=== PATIENT | male | born 1945 | race Caucasian/White ===

== ENCOUNTER 2019-09-04 13:18 | Inpatient (IN) | payer OTHER, SELFPAY ==
--- NOTE | 2019-08-30 10:00 | XR_ITS ---
WS: [id number] PROCEDURE: XR chest 2V* [id number] CLINICAL INFORMATION: PERIPHERAL VASCULAR DISEASE - L FORMORA TO RIGHT FEMORAL BYP COMPARISON: January 23, 2017 FINDINGS: Heart: Normal cardiac silhouette. Lungs: Mild chronic emphysematous changes. No acute pulmonary infiltrates. No focal pneumonia. Bones: Normal visualized bony structures. XR/XR chest 2V* 95750 IMPRESSION: No acute chest findings.
[2019-08-30 10:38] VITALS: BMI 27.4
--- NOTE | 2019-08-30 11:08 | ECG_ITS ---
Measurements Intervals Broad Top Rate: 60 P: 83 OH: 172 QRS: 86 QRSD: 95 T: 88 QT: 407 QTc: 407 SINUS RHYTHM SEPTAL MYOCARDIAL INFARCTION [40+ ms Q WAVE IN V1/V2], OF INDETERMINATE AGE Compared to ECG 01/23/2017 17:38:40 No significant changes Electronically Signed On 08-30-2019 18:37:16 OIL DIPPER by Aleshia Ackerman M.D. [email or web address]
[2019-08-30 11:22] LABS: Add Urine Microscopic? NO
[2019-08-30 11:26] LABS: Basophils # 0.1 10^3/uL (0.0-0.1); Eosinophils # 0.5 10^3/uL (0.0-0.8); Eosinophils % 8.6 %; Hematocrit 47.9 % (42.0-52.0); Hemoglobin 15.9 g/dL (11.7-16.6); Lymphocytes # 1.6 10^3/uL (0.8-4.8); Lymphocytes % 25.9 %; Mean Corpuscular HGB Conc 33.2 g/dL (30.0-36.0); Mean Corpuscular Hemoglobin 30.7 pg (28.0-34.0); Mean Corpuscular Volume 92.5 fL (80-94); Mean Platelet Volume 9.6 fL (7.4-10.4); Monocytes # 0.5 10^3/uL (0.2-0.9); Monocytes % 8.7 %; Neutrophils # 3.3 10^3/uL (1.8-7.7); Neutrophils % 55.1 %; Nucleated Red Blood Cells % 0 %; Platelet Count 256 10^3/cmm (130-400); Red Blood Count 5.18 10^6/uL (4.1-5.3); White Blood Count 6.1 10^3/uL (4.0-10.0)
--- NOTE | 2019-08-30 11:28 | P.ANES_ITS ---
Pre-Anesthetic Assessment Pre-Anesthetic Assessment: Height/Weight: Height 1.57 m Weight 68.039 kg Preop Diagnosis: Peripheral vascular disease Proposed Procedure: Operation Date: 09/04/19 08:10 Proposed Procedures p Femoral-Femoral Artery Bypass left to right(Not Applicable) - Phoenix Donnelly MD Familial anesthetic complications: No trouble iwth anesthesia Social: Social History: Tobacco (0.5 ppd) and No alcohol Exam: Pre-Anes Outpt Exam: alert, oriented x 3, clear to auscultation bilaterally and regular rate & rhythm Airway: Cervical ROM: WNL MP: 4 Dentition: False Pulmonary: Pulmonary: COPD CV/HEM: CV/HEM: Angina (Stable) (Describes sharp stabbing pains (in the muscles of his chest) that lasts a few seconds, then goes away. occurs 1-2x a month for years, no triggers) and HTN Comments: Abdominal aortic aneursym, EKG with septal CT (age indertimate) : : None reported Hepatic: Hepatic: None reported GI: GI: None reported Metabolic: Metabolic: None reported Musc/skel: Musc/skel: Lower Back Pain and OA/DJD Comments: L shoulder pain Neuropsych: Neuropsych: POTTS Anesthetic Plan: ASA status: IV Anesthesia: General Risk of > 500 ml blood loss (7ml/kg in children): Yes, adequate IV access and fluids planned Data Anesthesia CBC & Chem 7: 08/30/19 11:05 Other Labs: Laboratory Results - last 48 hr 08/30/19 11:05 WBC 6.1 RBC 5.18 Hgb 15.9 Hct 47.9 MCV 92.5 MCH 30.7 MCHC 33.2 RDW 12.0 L Plt Count 256 MPV 9.6 Neut % (Auto) 55.1 Lymph % (Auto) 25.9 Lau[place] % (Auto) 8.7 Eos % (Auto) 8.6 Baso % (Auto) 1.0 Neut # (Auto) 3.3 Lymph # (Auto) 1.6 [place] # (Auto) 0.5 Eos # (Auto) 0.5 Baso # (Auto) 0.1 Nucleated RBC % (auto) 0 Nucleated RBCs # 0.0 Cardiac Studies: No Data to Display
[2019-08-30 11:33] LABS: Bilirubin Urine Neg (NEGATIVE); Blood Urine Neg (Negative); Glucose Urine UA Norm (Normal); Ketones Urine Negative (Negative); Leukocyte Esterase Urine Negative (Negative); Nitrate Urine Negative (Negative); Protein Urine Neg (Negative); Specific Gravity, Urine 1.005 (1.005-1.030); Urine Appearance Clear (CLEAR); Urine Color Straw (Yellow); Urobilinogen Urine Norm (Negative)
[2019-08-30 11:36] LABS: INR 0.93 (0.8-1.2)
[2019-08-30 11:55] LABS: Anion Gap 17.3 (5-19); Blood Urea Nitrogen 10 mg/dL (8-23); Calcium 10.2 mg/dL (8.5-10.5); Carbon Dioxide 26 mmol/L (22-29); Chloride 99 mmol/L (98-107); Creatinine Clr Calc Pharmacy 56.6436; Glucose 96 mg/dL (74-106); Osmolality Calculated 282 mOsm/kg (285-295); Potassium 4.3 mmol/L (3.5-5.1); Sodium 138 mmol/L (136-145)
[2019-09-04] VITALS (35 sets, daily range): BP systolic 92–166; BP diastolic 54–94; PULSE 50–71; RESP 10–21; TEMP 36.2–37.2; O2SAT 81–100
--- NOTE | 2019-09-04 06:41 | PM.HP ---
Providers/Chief Complaint Primary Care Provider: Jean Carlos Carroll DO Chief Complaint: femroal bypass History of Present Illness Godwin Solorio is a 73 year old male who is been [facility] for bilateral lower extremity claudication. He subsequently went angiography and intervention by Dr. 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 He has done very well with resolution of his left lower extremity symptoms though, not surprisingly, he still has right lower extremity claudication, though no rest pain or impending tissue loss. Given his age, and comorbidities, after discussion with Dr. Slade, we recommended consideration of left femoral to right femoral artery bypass as a less invasive approach as compared to aorto femoral bypass requiring intra-abdominal access. Rationale for this was carefully discussed with Mr. Solorio, and he was clearly in favor of the less invasive approach. He presents today for planned procedure. Review of Systems Const: Denies: fever, chills, change in appetite or change in weight Eyes: Denies: change in vision Card: Reports: leg pain with exertion; Denies: chest pain or irregular heart rhythm Resp: Denies: productive cough GI: Denies: abdominal pain, nausea or vomiting Psych: Reports: depression Medications/Allergies Home Medications Medication Instructions Recorded Confirmed Last Taken Type acetaminophen [Tylenol] 325 mg PO PRN PRN 08/30/19 08/30/19 Unknown History aspirin 81 mg PO DAILY 08/30/19 08/30/19 08/29/19 History clopidogrel [Plavix] 75 mg PO DAILY 08/30/19 08/30/19 08/09/19 History rosuvastatin 5 mg PO DAILY 08/30/19 09/04/19 09/02/19 History varenicline [Chantix] 0.5 mg PO DAILY 08/30/19 09/04/19 09/02/19 History Allergies Allergy/AdvReac Type Severity Reaction Status Date / Time bee venom protein (honey bee) Allergy ALGY-Anaphy Verified 08/30/19 10:27 laxis morphine Allergy ADR-Nausea Verified 08/30/19 10:27 PFSH Acute PFSH: Statuses (acute, chronic, etc) shown below reflect problem list status as previously entered and may not be historically accurate Medical History (Updated 09/04/19 @ 06:45 by Phoenix Donnelly MD) AAA (abdominal aortic aneurysm) (Acute) COPD (chronic obstructive pulmonary disease) (Acute) Depression (Acute) Hypertension (Acute) Peripheral vascular disease (Acute) Surgical History History of back surgery (Acute) Status post insertion of iliac artery stent (Acute) Physical Exam Const: COMMON NORMALS: no apparent distress, average body habitus and healthy appearing GENERAL APPEARANCE: cooperative, comfortable and well developed HENMT: COMMON NORMALS: normocephalic Lymph: LYMPHATIC: no lymphadenopathy noted Chest: COMMONS NORMALS: inspection of chest normal and palpation of chest normal Resp: COMMON NORMALS: normal respiratory effort EFFORT & INSPECTION: Yes symmetric chest movement AUSCULTATION: clear to auscultation bilaterally Cardio: COMMON NORMALS: regular rate and regular rhythm; negative for peripheral pulses 2+ throughout (Decreased pulses right lower extremity) RATE: regular rate RHYTHM: regular rhythm BRUITS: no carotid bruits PERIPHERAL PULSES: radial pulses present and femoral pulses present positive left GI: INSPECTION: Yes normal to inspection AUSCULTATION: Yes normoactive bowel sounds Extremity: COMMON NORMALS: full ROM Psych: COMMON NORMALS: mental status grossly normal, thought process normal, cooperative and affect normal Data : 08/30/19 11:05 08/30/19 11:05 A&P Assessment and plan (1) Status post insertion of iliac artery stent: 73-year-old gentleman with peripheral vascular disease including right common iliac artery occlusion status post stenting of the left external iliac artery. We plan for left femoral to right femoral artery bypass utilizing Ros[place]-Schuyler graft. This was recommended as a less invasive approach as compared to aorto iliac bypass. Mr. Solorio was clearly enthusiastic about considering the less invasive approach. Details the risk of the procedure were carefully and frankly discussed including potential risk for infection, major bleeding, acute ischemia requiring further revisions or even possible loss of the lower extremity. All questions were answered and proper consents have been reviewed and signed. Status: Acute Code(s): Z95.828 - Presence of other vascular implants and grafts Attestations Medical Necessity Statement*: Right lower extremity claudication with right common iliac artery occlusion Time Spent in Patient Care: Greater than 35 minutes Coding Level of Care Code Acute Sole Leveler for Chg Fwd Diagnoses Status post insertion of iliac artery stent Z95.828
[2019-09-04] MEDS: sodium chloride 0.9% 1,000 ML 30 ML IV (07:39)
[2019-09-04] MEDS: vancomycin 1,000 MG SDV 1000 MG IRRIGATION (08:36)
[2019-09-04] MEDS: heparin, porcine 1,000 unit/mL INJ 10 mL 10000 UNIT IRRIGATION (08:45)
--- NOTE | 2019-09-04 12:43 | P.OP_ITS ---
Operative Report Date of procedure: September 04, 2019 Pre-op Diagnosis: Peripheral vascular disease Post-op diagnosis: same Procedure Done: Left femoral artery to right femoral artery bypass utilizing 8 mm Gibson-Schuyler graft Specimens removed/disposition: Plaque from left common femoral artery Pathology: other Pathology: Plaque from left common femoral artery Surgeon: Phoenix Donnelly Anesthesia: General Estimated blood loss (mL): 100 IV fluids (mL): 400 Complications: None Condition: stable Disposition: PACU Brief History: 73-year-old gentleman with bilateral lower extremity claudication status post angiography and stenting of the left external iliac artery. He has a known right iliac artery occlusion. Options for revascularization of the right lower extremity were discussed and to decrease the amount of invasiveness, he wears for the option of a femoral to femoral artery bypass. Rationale was carefully discussed as well as particular risk including infection, pneumonia, pain, lack of improvement of symptoms, need to remove the graft which might result in acute ischemia to the lower extremities resulting amputation, need for long-term follow-up. He stated understanding, wished for us to proceed. Appropriate consents have been reviewed and signed. Procedure: Patient was taken operating room theater carefully positioned on the OR table where appropriate IVs were confirmed. He subsequently went general endotracheal anesthesia. Right radial arterial line was placed. His entire lower extremities and lower abdomen from the xiphoid process through the feet was sterilely prepped and draped. Handheld Doppler interrogation was performed to confirm the exact locations of the femoral arteries and attempt to decrease incision sites. With this technique, bilateral groin incisions were made carried down to the subcutaneous tissues utilizing cautery and suture as required. This was continued down to the femoral sheath which was opened exposing initially left common femoral artery as well as a superficial profunda arteries. Similar technique was utilized on the right side. Following this, a curved subcutaneous tunneler was placed from the left groin to the right groin and an 8 mm ringed Gibson-Schuyler graft was brought back and through this tunnel into each groin. After approximately 5 minutes, patient was then heparinized initially with 10,000 units. We next isolated the left common profunda and superficial femoral arteries. Vascular control was obtained and the vessel was opened up rather distally up onto the SFA. Encroaching plaque was sharply removed after endarterectomy was performed locally. We then performed end-to-side anastomosis utilizing the ringed Gibson-Schuyler graft with running 5-0 Prolene suture. Areas of extravasation were repaired with 6-0 Prolene. Surgicel and dry gauze was placed in the wound. Next, in a similar fashion the right common superficial and profunda femoral arteries were controlled. This vessel was opened up and actually had more plaque than I appreciated upon p alpation. There was appropriate backbleeding noted. We then cut the Gibson-Schuyler graft in this wound to the appropriate length again performed another end-to-side anastomosis with running 5-0 Prolene suture, utilizing 6-0 Prolene to repair areas of extravasation. Backbleeding was performed followed by reestablishment of flow to the right lower extremity. After approximately 5 minutes heparin was partially reversed with protamine. All wounds were carefully inspected. Hemostasis was confirmed. Wounds were irrigated with antibiotic solution. Sponge and needle count was correct. Each wound was closed in 2 layers of 3-0 Vicryl suture and the skin was reapproximated with 3-0 Monocryl suture in a subcuticular fashion. Maxorb dressing and sterile dressing was applied. He was awakened and extubated, taken to the postoperative care unit in stable condition. He has strong biphasic Doppler pulses in the right foot.
--- NOTE | 2019-09-04 12:58 | SUR.PHASEI ---
1225 PT TO PACU AWAKE FOLLOWS COMMANDS BUT ORIENTED TO SELF ONLY. BILAT GROIN STES D/I DISTAL BILAT FOOT PULSES NOTED BY DR LAWSON LT PALPATED AND MARKED , RT DOPPLED AND MARKED X 2 SITES EACH FOOT. PT ON 3LNC PT CONFUSED TRYING TO GET UP , PT REORIENTED MULTIPLE TIMES, GOOD RESP EFFORT VSS. JACOME TO DD STATLOCK TO RT THIGH.
--- NOTE | 2019-09-04 13:14 | SUR.PHASEI ---
1250 RT ARTERIAL LINE PULLED BY RN PT SONDRA WELL PRESSURE HELD X 10 MINUTES, PRESSURE DRESSING TO SITE. PT MORE ALERT ORIENTED X 2 NOW PT ON3LNC TAKING OCC ICE CHIPS DRESSINGX2 UNCHANGED PULSES RECHECKED AND UNCHANGED
--- NOTE | 2019-09-04 13:52 | SUR.PHASEI ---
1340 PT TO FLOOR PT AWAKE ALERT TALKATIVE WITH STAFF, NOW COMPLAINS OF PAIN AND NAUSEA AFTER MOVING TO FLOOR PT SLID TO BED WITH SLIDEBOARD AND ASSIST OF 3 NURSING STAFF, BILAT GROIN SITES D/I NO HEMATOMA, LT FOOT PULSE PALPATED AND RT FOOT DOPPLED X 2 SITES UNCHANGED. BP 129/77, HR 59,RESP 18, SATS 94% ON RA
--- NOTE | 2019-09-04 14:00 | PC.NURSE ---
Patient received from surgery
[2019-09-04] MEDS: atorvastatin 40 mg Tablet 20 MG PO (14:33)
[2019-09-04] MEDS: lactated ringers 1,000 ML 100 ML IV ×2 (14:34→19:57)
[2019-09-04] MEDS: HYDROcodone-acetaminophen 5-325 mg Tablet 1 TAB PO (14:58)
--- NOTE | 2019-09-04 15:00 | PC.NURSE ---
initial assessment noted 1/2x1/2 inch hematoma on the right groin.
--- NOTE | 2019-09-04 15:29 | PC.NURSE ---
Physician notified of hematoma growth to 1 inch by 1 inch. Ordered to bring patient back to surgery.
--- NOTE | 2019-09-04 15:49 | SUR.PHASEI ---
1530 BILATERAL PEDAL PULSES MARKED AT THIS TIME. DOPPLER USED. LEFT FOOT COOL TO THE TOUCH, RIGHT FOOT WARM TO THE TOUCH. PATIENT BROUGHT TO OPS VIA BED FROM MED SURG
[2019-09-04] MEDS: ketorolac 30 mg/mL INJ IVP (16:05)
--- NOTE | 2019-09-04 16:54 | PM.PN ---
Subjective Subjective: Interval history: Status post left femoral to right femoral artery bypass earlier today We were contacted by the nursing service on the second floor that there was increasing swelling in the right groin. I was in the middle of a another operative procedure, so we had Mr. Solorio transferred down to the holding area said I may examine him immediately following my procedure determine whether he needed to have a reexploration. Exam revealed mild swelling in the region though I do not think this is excessive. Vital signs are stable. Maintains Doppler signal in his right foot. Strong Doppler signal across the femorofemoral graft. Vitals/I&O/Wt Last Vital Signs Temp 98.9 F 09/04/19 15:25 Pulse 56 L 09/04/19 15:25 Resp 17 09/04/19 15:25 BP 131/65 09/04/19 15:25 Pulse Ox 97 09/04/19 15:25 09/04/19 09/04/19 09/04/19 06:59 14:59 22:59 Intake Total 50 / 50 0 / 50 Output Total 550 / 550 Balance -500 / -500 0 / -500 Physical Exam Extremity: NARRATIVE EXTREMITY EXAM: Mild swelling in the right groin region though this is not particularly impressive. Dressings remain dry. Strong biphasic Doppler signal remains in the right foot. Urinary Catheter Management^: Lilly: Cath Placed During This Visit: no Data : 08/30/19 11:05 08/30/19 11:05 A&P Assessment and plan (1) Status post femorofemoral bypass surgery: Status post femorofemoral bypass earlier today. Mild swelling in the right groin is stable. I do not feel that exploration is indicated at this time. To allow for more frequent examinations, we will have been placed in the ICU overnight. Status: Acute Code(s): Z95.828 - Presence of other vascular implants and grafts Attestations Medical Necessity Statement*: Peripheral vascular disease status post femorofemoral bypass Time Spent in Patient Care: 16 - 35 minutes Coding Level of Care Code Acute Coding Quality Analyst for Mariah Bone Diagnoses Status post femorofemoral bypass surgery Z95.828
[2019-09-04] MEDS: calcium carbonate 500 mg Chew Tablet 1000 MG PO (19:56)
[2019-09-04] MEDS: ceFAZolin 1,000 MG in sodium chloride 0.9% (plus) 50 ML 100 MG IV (19:57)
[2019-09-04] MEDS: aspirin 81 mg Chew Tablet PO (19:57)
[2019-09-05] VITALS (12 sets, daily range): BP systolic 90–117; BP diastolic 49–69; PULSE 48–71; RESP 10–18; TEMP 36.6–36.8; O2SAT 92–100
[2019-09-05] MEDS: calcium carbonate 500 mg Chew Tablet 1000 MG PO (00:31)
[2019-09-05 04:03] LABS: Basophils % 0.7 %; Eosinophils # 0.4 10^3/uL (0.0-0.8); Eosinophils % 7.2 %; Hematocrit 37.6 % (42.0-52.0); Hemoglobin 11.8 g/dL (11.7-16.6); Lymphocytes # 1.5 10^3/uL (0.8-4.8); Lymphocytes % 25.6 %; Mean Corpuscular HGB Conc 31.4 g/dL (30.0-36.0); Mean Corpuscular Hemoglobin 30.2 pg (28.0-34.0); Mean Corpuscular Volume 96.2 fL (80-94); Mean Platelet Volume 9.6 fL (7.4-10.4); Monocytes # 0.6 10^3/uL (0.2-0.9); Monocytes % 9.8 %; Neutrophils # 3.3 10^3/uL (1.8-7.7); Neutrophils % 56.4 %; Nucleated Red Blood Cells % 0 %; Platelet Count 178 10^3/cmm (130-400); Red Blood Count 3.91 10^6/uL (4.1-5.3); Red Cell Distribution Width 12.2 % (12.1-15.1); White Blood Count 5.8 10^3/uL (4.0-10.0)
[2019-09-05] MEDS: lactated ringers 1,000 ML 100 ML IV (04:05)
[2019-09-05] MEDS: ceFAZolin 1,000 MG in sodium chloride 0.9% (plus) 50 ML 100 MG IV (04:05)
[2019-09-05 04:24] LABS: Anion Gap 14.4 (5-19); Blood Urea Nitrogen 10 mg/dL (8-23); Calcium 9.3 mg/dL (8.5-10.5); Carbon Dioxide 23 mmol/L (22-29); Chloride 105 mmol/L (98-107); Glucose 102 mg/dL (74-106); Osmolality Calculated 282 mOsm/kg (285-295); Potassium 4.4 mmol/L (3.5-5.1); Sodium 138 mmol/L (136-145)
--- NOTE | 2019-09-05 05:39 | PM.PN ---
Subjective Subjective: Interval history: Patient has no complaints on rounds this morning. He is quite conversive. Vitals/I&O/Wt Last Vital Signs Temp 98.3 F 09/05/19 00:00 Pulse 50 L 09/05/19 04:00 Resp 11 L 09/05/19 04:00 BP 104/51 09/05/19 04:00 Pulse Ox 95 09/05/19 04:00 09/04/19 09/04/19 09/05/19 14:59 22:59 06:59 Intake Total 50 / 50 370 / 420 1418.333 / 1838.333 Output Total 550 / 550 1000 / 1550 Balance -500 / -500 370 / -130 418.333 / 288.333 Physical Exam Extremity: OTHER: Groin incisions are clean and dry with surgical dressings in place without strikethrough. Minimal swelling noted. He has a lightly palpable dorsalis pedis pulse this morning on the right side which I could not feel yesterday evening. He has biphasic signals in the DP and PT positions in the right foot by Doppler. Urinary Catheter Management^: Lilly: Cath Placed During This Visit: no Data : 09/05/19 03:45 09/05/19 03:45 A&P Assessment and plan (1) Status post femorofemoral bypass surgery: POD #1 status post left femoral to right femoral bypass. Good progress. We will discontinue Lilly catheter, transfer to the castelan, and assess for discharge later this evening or tomorrow. Status: Acute Code(s): Z95.828 - Presence of other vascular implants and grafts Attestations Medical Necessity Statement*: Status post femorofemoral bypass for symptomatic claudication of the right lower extremity with known right common iliac artery occlusion Time Spent in Patient Care: 16 - 35 minutes Coding Level of Care Code Acute Raw Mill Operator for Mariah Bone Diagnoses Status post femorofemoral bypass surgery Z95.828
[2019-09-05] MEDS: enoxaparin 40 mg/0.4 mL Syringe SUBCUT (06:10)
[2019-09-05] MEDS: aspirin 81 mg EC Tablet PO (09:17)
[2019-09-05] MEDS: pantoprazole DR 40 mg Tablet PO (09:17)
[2019-09-05] MEDS: atorvastatin 40 mg Tablet 20 MG PO (09:17)
[2019-09-05] MEDS: HYDROcodone-acetaminophen 5-325 mg Tablet 1 TAB PO (11:21)
--- NOTE | 2019-09-05 13:10 | PC.CHAP ---
Pastoral Care Encounter/Spiritual Assessment Type of Contact [] Declined heat treating bluer visit [] Patient/Family/Request visit [] Outpatient visit [] Follow-up visit [] Physician referral [] Code/Alert [x] Routine visit [] Staff referral [] Actively dying [] Patient sleeping [] Family support [] [] Out of room [] Palliative care [] [] Receiving care in room [] Pre-surgical visit [] Trauma [] Long length of stay [x] ICU visit [] Other: Relational/Emotional Strength [x] Patient feels connected with others/family/visitors/staff [] Distress [] Loneliness/isolation [] Abandonment Spirituality of Patient [x] Person of Elizabeth [] Attends [employer] of their Elizabeth [x] Believes in Prayer [] Reads Bible or Judaism materials [] There are Spiritual issues to be addressed Aviation Consultant Interventions [x] Prayer [x] Active listening [x] Non-anxious presence [x] Spiritual/emotional support [] Crisis/trauma care [] Spiritual counseling [] Bereavement support [] Provided bereavement packet [] Provided Bible/devotional materials [] Provided toy/stuffed animal, coloring book to patient or family member [] Provided Communion [] Anointing/[place]on [] Salvation [] Completed spiritual assessment [] Other: Impact on Illness or Injury [] Angry [] Fearful [] Anxious [] Often cries [] Exhaustion [] Unable to work [] Unable to attend muslim [] Unable to walk/stand [] Unable to read [] Unable to drive [] Unable to eat/drink [] Unable to sleep [] Unable to be with family [] Patient intubated [] Other: Summary The heat treating bluer visited the patient. The patient enjoyed the visit and the the heat treating bluer prayed for him. The patient asked the heat treating bluer tovisit a friend of his on second floor. Time spent with patient 15 min.
--- NOTE | 2019-09-05 17:49 | P.DS_ITS ---
Discharge Providers Date of Admission: 09/04/19 13:18 Date of Discharge: Date of Discharge: September 05, 2019 Attending Provider at Admission: Phoenix Donnelly MD Attending Provider at Discharge: Phoenix Donnelly MD Primary Care Provider: Jean Carlos Carroll DO Diagnoses at Discharge Discharge Diagnosis (1) Status post femorofemoral bypass surgery: Status: Acute Reason for Visit Reason for Visit: Reason For Visit: femroal bypass Hospital Course Hospital Course: Mr. Solorio was electively admitted yesterday on September 04 for planned left femoral to right femoral artery bypass due to right common iliac artery occlusion. He had previously undergone stenting of his left external iliac artery by Dr. Slade. Following his surgery, he convalesced in the ICU. He did very well. Stable vital signs. Pain under good control. Incision is clean and dry. He has a 2+ right posterior tibial pulse and a light right popliteal pulse prior to discharge. He will be discharged home today in stable condition. Physical Exam Extremity: NARRATIVE EXTREMITY EXAM: Bilateral groin incisions are clean and dry. Surgical dressings were removed. Incisions were painted with Betadine, covered with Maxorb, and adhesive dressing. 2+ palpable right posterior tibial pulse. Lightly palpable right dorsalis pedis pulse. Urinary Catheter Management^: Lilly: Cath Placed During This Visit: yes Urethral Indwelling: No Reason for Continuing Indwelling Catheter: Accurate Measurement of Urinary Output in Critically Ill Patients Urinary Catheter Date of Insertion: 09/04/19 Urinary Catheter Time of Insertion: 09:00 Discharge Data Data Completed and Pending: Completed Studies During Hospitalization Category Date Time Status XR chest 2V* 7104 6 Routine Exams 08/30/19 10:00 Completed Pending at discharge Category Date Time Status CTS [Type and Scr een - Cardiac] [facility] 08/30/19 11:05 Results Complete Blood Co unt w/Auto AM LABS Lab 09/06/19 04:00 Ordered Complete Blood Co unt w/Auto AM LABS Lab 09/07/19 04:00 Ordered Leukocyte Reduced RBC Routine Lab 08/30/19 11:05 Results Retype for XM [facility] ana rosa [facility] 08/30/19 11:05 Results Pathology: Surgic al [PTH] Routine Pth 09/04/19 11:37 Received Labs from last 24 hours 09/05/19 09/05/19 03:45 03:45 WBC 5.8 RBC 3.91 L Hgb 11.8 Hct 37.6 L MCV 96.2 H MCH 30.2 MCHC 31.4 RDW 12.2 Plt Count 178 MPV 9.6 Neut % (Auto) 56.4 Lymph % (Auto) 25.6 [place] % (Auto) 9.8 Eos % (Auto) 7.2 Baso % (Auto) 0.7 Neut # (Auto) 3.3 Lymph # (Auto) 1.5 [place] # (Auto) 0.6 Eos # (Auto) 0.4 Baso # (Auto) 0.0 Nucleated RBC % (a uto) 0 Nucleated RBCs # 0.0 Sodium 138 Potassium 4.4 Chloride 105 Carbon Dioxide 23 Anion Gap 14.4 BUN 10 Creatinine 0.9 Glucose 102 Calculated Osmolal ity 282 L Calcium 9.3 Vitals: Last Vital Signs Temp 98.0 F 09/05/19 14:00 Pulse 62 09/05/19 16:00 Resp 15 09/05/19 16:00 BP 117/62 09/05/19 16:00 Pulse Ox 96 09/05/19 16:00 Discharge Plan Discharge Patient Disposition: Home, Self-Care Condition: Stable Prescriptions: New hydrocodone-acetaminophen 5-325 mg Tablet 1 tab PO Q6H PRN (Reason: Moderate To Severe Pain) Qty: 12 RF: 0 clopidogrel 75 mg tablet 75 mg PO DAILY Qty: 30 RF: 0 Continued Tylenol 325 mg Tablet 325 mg PO PRN PRN (Reason: Pain) RF: 0 aspirin 81 mg Tablet,Delayed Release (Dr/Ec) 81 mg PO DAILY RF: 0 rosuvastatin 5 mg Tablet 5 mg PO DAILY RF: 0 Chantix 0.5 mg Tablet 0.5 mg PO DAILY RF: 0 Discontinued Plavix 75 mg Tablet 75 mg PO DAILY RF: 0 Discharge Orders: Discharge Order (Routine); Ordered 09/05/19 Ordered By: Phoenix Donnelly Referrals: Phoenix Donnelly MD [Physician] - 1 week Discharge Diet: Usual diet Discharge Activity: Limit activity as instructed Activity Restrictions/Additional Instructions: May remove bandage in 2 days May begin daily showers in 2 days No swimming or tub baths x 2 weeks No ointments on incision Report drainage, redness, heat, increased pain, or swelling to clinic No heavy lifting or straining x2 weeks Following shower, after drying thoroughly, keep gauze over incisions beneath underwear. Keep legs elevated as much as possible. Discharge Attestations Time Spent in Discharge Care*: less than 30 min Specific Discharge Activities: Specific discharge activities: educating patient, educating and/or supporting family/caregiver and evaluating patient/reviewing data Status at Discharge: Cognitive status at discharge: cognitively intact , Behavioral status at discharge: cooperative , Overall status at discharge: patient is back to baseline Quality Metrics Clinical Quality Measures During this hospital stay, did patient experience: None Coding Level of Care Code Acute Group Fitness Instructor for Mariah Fwmackenzie Diagnoses Status post femorofemoral bypass surgery Z95.828
[2019-09-05] MEDS: clopidogrel 75 mg Tablet PO (17:50)
== END 2019-09-05 18:16 | disposition home or self-care (01) | DRG 254 ==
LOC: MEDSURG 13:19 → ICU 15:46
PROVIDERS: Admitting Provider Thoracic Surgery (Cardiothoracic Vascular Surgery); Family Provider Emergency Medicine Emergency Medical Services; PCP Emergency Medicine Emergency Medical Services; Visit Provider Thoracic Surgery (Cardiothoracic Vascular Surgery)
PROC: 041L0JH Bypass Left Femoral Artery to Right Femoral Artery with Synthetic Substitute, Open Approach (ICD-10-PCS; principal; 2019-09-04 07:50)
DX: I73.9 Peripheral vascular disease, unspecified (principal); Z88.5 Allergy status to narcotic agent; Z79.02 Long term (current) use of antithrombotics/antiplatelets; Z79.82 Long term (current) use of aspirin; Z79.899 Other long term (current) drug therapy; J44.9 Chronic obstructive pulmonary disease, unspecified; I10 Essential (primary) hypertension; F17.200 Nicotine dependence, unspecified, uncomplicated
CPT/HCPCS: 12345; 36415; 51702; 71046; 80048; 81003; 85025; 85610; 86850; 86900; 88304; 93005; 96365; 96366; 96372; J0131; J0690; J1644; J1650; J1885; J2405; J2704; J2720; J3010; J3370; J3490; J7030

== ENCOUNTER 2020-09-27 07:03 | Outpatient (CLI) | payer OTHER, SELFPAY ==
[2020-09-27 07:06] VITALS: BMI 26.2
--- NOTE | 2020-09-27 07:07 | NMCV_ITS ---
[facility] perf SPECT r/s* [id number] Godwin Solorio Age: 74 Gender: M : 1945 Exam Date: 09/27/2020 08:09 Ordering Phys: Seda Fonseca MD ([email or web address]) Technologist: CHANTAL Bobo Exam Location: [facility] Indications: DYSPNEA STRESS TEST Please [facility] IMAGE PROTOCOL Rest/Stress 1 Lexiscan Day Radiopharmaceutical Dose (mCi) Administration Site Administered by Rest: Tc-99m 11.0 IV CHANTAL Kim Sestamibi Stress:Tc-99m 32.8 IV CHANTAL Kim Sestamibi Rest: 27-Sep-2020 60 Discovery 630 Stress: 27-Sep-2020 30 Discovery 630 0.4mg Lexiscan. Images obtained in supine and prone position. SPECT RESULTS Technical Quality: Excellent Raw Data Analysis: Normal Image Corrections: No attenuation or motion correction applied Summed Stress Score: 15 Summed Rest Score: 7 Summed Difference Score: 8 PERFUSION FINDINGS Medium sized perfusion abnormality of mild to moderate severity of mid to apical anteroseptal, apical inferior and apical boyd with reversibility noted in mid to apical anterior, mid to apical anteroseptal, mid inferoseptal and apical boyd on stress images. FUNCTIONAL RESULTS (calculated via Gated SPECT) Stress Image LV EF (%): 69 Stress EDV (mL):71 TID: 0.98 Stress ESV (mL):22 FUNCTIONAL FINDINGS: The left ventricle is normal in size. Transient Ischemia Dilatation of 0.98. The left ventricular ejection fraction is normal with a value of 69%. There is normal left ventricular wall thickening. Normal end-diastolic and end-systolic volumes. IMPRESSIONS 1. Medium sized perfusion abnormality of moderate severity of mid to apical anteroseptal, apical inferior and apical boyd with reversibility noted in mid to apical anterior, mid to apical anteroseptal, mid inferoseptal and apical boyd. 2. This is suggestive of myocardial infarction in left anterior descending artery territory with moderate kole-infarct ischemia. 3. Overall left ventricular systolic function is normal without regional wall motion abnormalities. 4. The left ventricular ejection fraction is normal with a value of 69%. 5. No prior similar studies to compare. Seda Fonseca MD (Electronically Signed) Final Date: 30 September 2020 17:34 S
--- NOTE | 2020-09-27 07:07 | ECG_ITS ---
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 Interpretive Statements NAME OF STUDY: LEXISCAN SESTAMIBI STRESS TEST INDICATION: Dyspnea PROCEDURE: At the baseline, the blood pressure was 110/79 mmHg with a heart rate of 71 bpm. The electrocardiogram showed normal sinus rhythm, normal axis with possible old anteroseptal infarct. The Lexiscan was infused over a period of 20 seconds. A total of 0.4 milligrams of Lexiscan was infused. The stress phase was continued for a total of 5 minutes. Heart rate at the end of the stress phase was 82 bpm with a blood pressure 118/70 mmHg. The EKG at the peak infusion revealed sinus rhythm with no significant ST-T wave changes. Sestamibi was injected 20 seconds after the Lexiscan infusion. Blood pressure at the end of the recovery phase was 121/71 mmHg with a heart rate of 79 beats per minute. CONCLUSION: 1. No significant EKG changes with the LexiScan infusion. 2. No LexiScan induced chest pain or cardiac arrhythmia. 3. Normal blood pressure and heart rate response. 4. Sestamibi/sestamibi perfusion scan pending; see separate report. Electronically Signed On 09-30-2020 17:26:29 [place] [facility] by Seda Fonseca M.D. [id number]
--- NOTE | 2020-09-27 09:43 | PC.NURSE ---
pt not able to complete exercise mibi, verbal order to change to rigoiscan per dr laws.
[2020-09-27] MEDS: regadenoson 0.4 Mg/5 ml Syringe IVP (09:48)
[2020-09-27 09:54] VITALS: BP 110/79; PULSE 71
== END 2020-09-27 07:04 | disposition home or self-care (01) ==
LOC: CDL 07:04
PROVIDERS: PCP Family Medicine; Visit Provider Internal Medicine Cardiovascular Disease
DX: R06.09 Other forms of dyspnea (principal); I25.89 Other forms of chronic ischemic heart disease
CPT/HCPCS: 78452; 93017; A9500; J2785

== ENCOUNTER → 2020-10-24 09:28 | Outpatient (BNVA) | payer OTHER, SELFPAY | PROVIDERS: PCP Family Medicine; Visit Provider Internal Medicine Cardiovascular Disease | DX: Z01.818 Encounter for other preprocedural examination (principal); Z20.822 Contact with and (suspected) exposure to COVID-19 | CPT/HCPCS: 87635 ==

== ENCOUNTER 2020-10-30 12:38 | Observation (INO) | payer OTHER, SELFPAY ==
[2020-10-24 08:42] LABS: Basophils # 0.1 10^3/uL (0.0-0.1); Eosinophils # 0.7 10^3/uL (0.0-0.8); Eosinophils % 8.1 %; Hematocrit 48.8 % (42.0-52.0); Hemoglobin 16.3 g/dL (11.7-16.6); Lymphocytes # 1.8 10^3/uL (0.8-4.8); Lymphocytes % 22.4 %; Mean Corpuscular HGB Conc 33.4 g/dL (30.0-36.0); Mean Corpuscular Hemoglobin 31.7 pg (28.0-34.0); Mean Corpuscular Volume 94.9 fL (80-94); Mean Platelet Volume 9.1 fL (7.4-10.4); Monocytes # 0.6 10^3/uL (0.2-0.9); Monocytes % 7.5 %; Neutrophils % 60.2 %; Nucleated Red Blood Cells % 0 %; Platelet Count 294 10^3/cmm (130-400); Red Blood Count 5.14 10^6/uL (4.1-5.3); Red Cell Distribution Width 12.4 % (12.1-15.1)
[2020-10-24 08:53] LABS: INR 0.92 (0.83-1.21); Prothrombin Time (Patient) 12.6 Seconds (12.0-15.1)
[2020-10-24 09:02] LABS: Anion Gap 12.7 (5-19); Blood Urea Nitrogen 14 mg/dL (8-23); Calcium 9.2 mg/dL (8.5-10.5); Carbon Dioxide 29 mmol/L (22-29); Chloride 99 mmol/L (98-107); Glucose 96 mg/dL (65-115); Osmolality Calculated 282 mOsm/kg (285-295); Potassium 4.7 mmol/L (3.5-5.1); Sodium 136 mmol/L (136-145)
[2020-10-30] VITALS (49 sets, daily range): BP systolic 93–178; BP diastolic 53–92; PULSE 45–85; RESP 14–24; TEMP 36.7–36.8; O2SAT 92–98; BMI 25.7
--- NOTE | 2020-10-30 06:00 | XACV_ITS ---
Ht: 157 cm Wt: 64 kg BSA: 1.69 m2 Gender: Male : 1945 Any Known Allergies: Other Exam Priority: Routine Procedure(s): Procedure Description: Diagnostic procedure Procedure Description: PCI procedure Procedure Description: Drug Eluting Coronary Stent Procedure Description: PTCA Procedure Description: Miscellaneous Procedure Description: ACT Procedure Description: Coronary Angiography Diagnostic Cath Status: Elective Diagnostic Findings * Indication: Worsening shortness of breath/abnormal stress test. * CX has mild luminal irregularities. In distal vessel, there is 30 to 40% stenosis.. * Mid left circumflex artery is a ENVIRONMENTAL CONFLICT MANAGER. Mid Left Anterior Descending Coronary Artery: Severe 100% stenosis, PEYTON: 0 flow. Distal vessel receives collaterals from LCx and RCA. * RCA is proximally * chronic totally occluded vessel. It gives some collaterals to LAD. pRCA: Severe 100% stenosis, PEYTON: 0 flow. * LM has 0% stenosis. * 1st Diagonal Coronary Artery: Moderate 50% stenosis, PEYTON: 3 flow. * Coronary angiography shows right dominance. PCI Status: Elective PCI Indication: Other Interventional Findings * Procedure detail: We engaged left main artery using XB 3.5 guide catheter. IV heparin was used to maintain an ACT above 250 seconds. We initially attempted to cross the LAD stenosis with run through guidewire but were not able to do it. We then used microcatheter for support and were able to subtotally/totally occluded segment with a fielder XT guide wire. Once we were across the occluded segment, we advanved the microcatheterto distal LAD and switched the Fielder XT guidewire to Runthrough wire. We predilated the stenosis with 2.25 x 15 mm semicompliant balloon. This was followed by placement of 2.5x26mm resolute Chang drug-eluting stent. At this time he noted just distal to the stent,there was some haziness. We placed 2.25x18 mm resolute [place] stent overlapping with the prior LAD stent. Post At this time final angiogram was performed that showed excellent stent expansion, no residual stenosis and PEYTON-3 flow. Guidewire and guide catheter were removed. Hemostasis was obtained with TR band. 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 * Mid Left Anterior Descending Coronary Artery: 100% stenosis treated with AB MINI TREK 1.50X12 RX BALLOON, AB TREK 2.25X15 RX BALLOON, MDT R CHANG 2.5X26 EFFIE, and MDT R CHANG 2.25X18 EFFIE. 0% residual stenosis, PEYTON: 3 flow. Conclusions 1. There is severe coronary artery disease with ENVIRONMENTAL CONFLICT MANAGER of LAD and RCA. 2. Successful revascularization of the mid LAD subtotal/totally occluded segment. Mid Left Anterior Descending Coronary Artery was treated with two Balloon and two Drug Eluting Stent. Recommendations * Transfer to [facility]SU. * Aspirin and Plavix for atleast 1 year. * High intensity statin therapy. * Outpatient follow up with Cardiology. Interventional RX Recommendation: PCI w/o planned CABG Diagnostic RX Recommendation: PCI w/o planned CABG Anticoagulation: Heparin Pressures Phase:Rest AO : 107 / 69 ( 86 ) @ 2:54:00 AM 109 / 61 ( 80 ) @ 2:58:00 AM 108 / 69 ( 87 ) @ 3:18:00 AM 123 / 61 ( 84 ) @ 3:26:00 AM 129 / 62 ( 85 ) @ 3:33:00 AM 95 / 49 ( 66 ) @ 3:35:00 AM 117 / 60 ( 82 ) @ 3:37:00 AM 114 / 59 ( 79 ) @ 3:49:00 AM 115 / 60 ( 80 ) @ 4:00:00 AM Clinical Evaluation EBL: 5mL-10mL Procedural Details Procedure Consent Obtained. Pre-Procedure Time Out. Identified patient by full name and date of as verbalized by the patient/guarantor. Does the consent match the physician's order: Yes. Accurate & Complete Informed Consent: Yes. Inpatient/Outpatient History & Physical on Chart: Yes. If H&P is completed, is and addenduem needed: No; If yes, is the addendum complete: N/A. Visualize and Verify Site with Patient/Guarantor: N/A. Relevant Radiology Images available: N/A. Pre-op teaching completed and patient verbalized understanding. The risks, benefits, and alternatives of sedation and/or procedure were discussed by physician. The patient agrees to continue. Procedure started. Physician arrived. [facility] Clinical Fraility Score: 3: Managing Well. 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 Chest Pain Symptom Assessment: Typical Angina Symptoms. Cardiovascular Instability: No. Correct patient, site and procedure confirmed by cath team. PERRLA. 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 Lungs clear x 5 lobes. IV Site on Arrival: 20 gauge in the right anticubital. IV Fluids: 0.9% NaCl at KVO. 0 mL infused prior to veterinarian laboratory animal care. Pre Procedural Pulses: bilateral dorsalis pedis was Doppled. Pre Procedural Pulses: bilateral posterior tibial was Doppled. Pre Procedural Pulses: right radial was 3+. Pre Procedural Pulses: left radial was 1+. Oxygen started at 2liters/min via nasal canula. bilateral groins was prepped with chloroprep then draped in the usual sterile fashion. right radial was prepped with chloroprep then draped in the usual sterile fashion. Baseline sample Acquired. HR: 61 BPM. Equipment: 6F - Radial. Cardiac Cath Pack. ACIST Manifold Kit Model BT 2000. Heparinized Saline (2 units/mL), 1000 mL bag. Physician scrubbed in. Immediate Pre-Procedure Time Out. Correct Patient: Yes; Correct Procedure: Yes; Correct Site: Yes; Correct Patient Position: Yes; Correct Supplies: Yes; Dried Flammable Prep: Yes; Blood Products Available: N/A;. Lidocaine 1% infiltrated to the right radial. A 5 estonian TIG catheter in over wire. Multiple views taken of left coronary artery. Catheter redirected to the RCA. Catheter removed over the exchange wire. Inventory is CRD 6 FR XB 3.5 GUIDE. 6 estonian XB 3.5 guide catheter was inserted over the wire. Runthrough guidewire was advanced through the guide catheter to lesion in the mid LAD. Teleport microcatheter inserted. Runthrough wire out. Fielder XLT guidewire inserted through microcatheter. Microcatheter advanced into mid LAD lesion. Fielder XLT wire. Runthrough 300 cm wire inserted. Microcatheter out over wire. ACT drawn. Results 484 seconds. Therapeutic limits - pre-heparin administration 90-150 seconds and monitoring heparin during a vascular procedure >250 seconds. Inflation number : 1 A AB MINI TREK 1.50X12 RX BALLOON was prepped and advanced across the Mid LAD , then inflated to 8 BROOKE for 0:19 seconds. Inflation number: 2 The AB MINI TREK 1.50X12 RX BALLOON was reinflated across the Mid LAD, to 8 BROOKE for 0:34 seconds. Inflation number: 3 The AB MINI TREK 1.50X12 RX BALLOON was reinflated across the Mid LAD, to 8 BROOKE for 0:19 seconds. Balloon out. ACT drawn. Results 404 seconds. Therapeutic limits - pre-heparin administration 90-150 seconds and monitoring heparin during a vascular procedure >250 seconds. Inflation number : 4 A AB TREK 2.25X15 RX BALLOON was prepped and advanced across the Mid LAD , then inflated to 10 BROOKE for 0:26 seconds. Inflation number: 5 The AB TREK 2.25X15 RX BALLOON was reinflated across the Mid LAD, to 10 BROOKE for 0:26 seconds. Inflation number: 6 The AB TREK 2.25X15 RX BALLOON was reinflated across the Mid LAD, to 8 BROOKE for 0:15 seconds. Balloon out. A second Runthrough guidewire was advanced through the guide catheter to lesion in the diaganol. Runthrough wire from Diagonal pulled back into guide catheter. Inflation Number : 7 A MDT R CHANG 2.5X26 EFFIE -Lot Number# [id number] exp date 04/12/2021 was prepped and advanced across the Mid LAD. The stent was deployed at 12 BROOKE for 0:27 seconds. Stent balloon out over wire. Results checked. Inflation Number : 8 A MDT R CHANG 2.25X18 EFFIE -Lot Number# [id number] exp date 03/20/2022 was prepped and advanced across the Mid LAD. The stent was deployed at 12 BROOKE for 0:14 seconds. Stent balloon out over wire. Wire out. Results checked. Guide catheter out. Physician scrubbed out. Arterial access obtained. A TR Band was successful obtaining hemostatsis at the Right Radial artery insertion site. TR band placed. Hemostasis obtained. Post Procedure: Pulses reassessed and unchanged. PERRLA. 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 No VTE prophylaxis required. Medication's Wasted: Lidocaine 1% = 18 mL. Medication's Wasted: Heparin = 2000 units. Medication's Wasted: Nitro = 49.4 mg. Medication's Wasted: Other = fentanyl 75 mcg. Total IV fluids: 100 mL. Contrast type used: Omnipaque 300 mgI/mL, 500 mL bottle. Complications: none. Post-op diagnosis: sub total occlusion of LAD, ENVIRONMENTAL CONFLICT MANAGER of RCA. Estimated blood loss: 5mL-10mL. Procedure completed. Patient transferred by wheelchair to CPRU. Vital chart was stopped. Access Site Site: Right Radial artery Sheath Size: 6 Fr Hemostasis Method: TR Band Hemostasis Success: Successful Procedure Medications Start: 7:34 AM Stop: 7:34 AM Medication: Versed Amount: 1 mg Route: I.V. Start: 7:34 AM Stop: 7:34 AM Medication: Fentanyl Amount: 25 mcg Route: I.V. Start: 7:39 AM Stop: 7:39 AM Medication: Versed Amount: 1 mg Route: I.V. Start: 7:42 AM Stop: 7:42 AM Medication: Fentanyl Amount: 25 mcg Route: I.V. Start: 7:45 AM Stop: 7:45 AM Medication: Nitrogylcerin Amount: 200 mcg Route: I.A. Start: 7:47 AM Stop: 7:47 AM Medication: Heparin Amount: 5000 units Route: I.V. Start: 7:57 AM Stop: 7:57 AM Medication: Heparin Amount: 3000 units Route: I.V. Start: 8:08 AM Stop: 8:08 AM Medication: Versed Amount: 1 mg Route: I.V. Start: 8:11 AM Stop: 8:11 AM Medication: Heparin Amount: 1000 units Route: I.V. Start: 8:27 AM Stop: 8:27 AM Medication: Fentanyl Amount: 25 mcg Route: I.V. Start: 8:28 AM Stop: 8:28 AM Medication: Versed Amount: 1 mg Route: I.V. Start: 8:33 AM Stop: 8:33 AM Medication: Fentanyl Amount: 25 mcg Route: I.V. Start: 8:54 AM Stop: 8:54 AM Medication: Nitrogylcerin Amount: 200 mcg Route: I.C. Start: 8:59 AM Stop: 8:59 AM Medication: Nitrogylcerin Amount: 200 mcg Route: I.C. Start: 9:01 AM Stop: 9:01 AM Medication: Fentanyl Amount: 25 mcg Route: I.V. Start: 9:08 AM Stop: 9:08 AM Medication: Plavix Amount: 300 mg Route: P.O. I, the attending physician, have reviewed and verified all procedure medications. Yes, all medications given per verbal order History/Risk Factors Hypertension: Yes Dyslipidemia: Yes Peripheral Arterial Disease (PAD): Yes Myocardial Infarction ([place]): No Obesity: No Renal Disease: No Tobacco Use: Current/Recent(w/in 1 year) Prior Interventions PCI: No CABG: No Valve Surgery: No Report Signatures Finalized by Dirk Wallis MD on 11/10/2020 10:56 PM
[2020-10-30] MEDS: diphenhydrAMINE 50 mg Capsule PO (06:44)
--- NOTE | 2020-10-30 07:30 | W.PM.OPSUD ---
Surgery/Procedure H&P Update DATE OF PROCEDURE: October 30, 2020 DATE H&P PERFORMED: 10/11/20 H&P UPDATE INFORMATION: I have reviewed H&P completed within last 30 days, I have examined patient prior to procedure and No changes to prior documentation PREOP DIAGNOSIS: Chest pain/abnormal stress test PRIMARY INDICATION FOR PROCEDURE: Chest pain/abnormal stress test PLANNED PROCEDURE: Operation Date: 10/30/20 07:00 Proposed Procedures p left Cardiac Catheterization 07338 [id number](Left) - Dirk Wallis M.D Possible percutaneus coronary intervetnion PATIENT REASSESSED PRIOR TO SEDATION, WITH NO CHANGE NOTED: Yes PHYSICAL EXAM: alert, oriented x 3 and clear to auscultation bilaterally AIRWAY EVAL/ANESTHESIA PLAN: ASA III, Risks, benefits & alternatives of sedation and/or procedure discussed and Patient agrees to continue as planned
--- NOTE | 2020-10-30 13:32 | PC.NURSE ---
Patient to ICU 6 at 1200 via stretcher from CPRU. Patient ambulated from stretcher to bed. Patient AAOx4, VSS, TR Band in place, no bleeding/hematoma noted, good pulses bilaterally.
--- NOTE | 2020-10-30 13:38 | PC.NURSE ---
Discharge pharmacy Patient wants at least 7 day supply of medication sent to [facility] drug, then remainder to OR.
--- NOTE | 2020-10-30 17:39 | PC.RESP ---
Smoking Cessation and Pulmonary Rehab information sent to patient.
[2020-10-31] VITALS (8 sets, daily range): BP systolic 103–116; BP diastolic 53–64; PULSE 46–55; RESP 16–20; O2SAT 93–96
[2020-10-31 04:18] LABS: INR 0.95 (0.8-1.2)
[2020-10-31] MEDS: clopidogrel 75 mg Tablet PO (09:10)
[2020-10-31 10:52] LABS: Troponin T (5th) Once 25 ng/L (0-15)
--- NOTE | 2020-10-31 12:13 | PC.CHAP ---
Pastoral Care Encounter/Spiritual Assessment Type of Contact [] Declined correspondence specialist visit [] Patient/Family/Request visit [] Outpatient visit [] Follow-up visit [] Physician referral [] Code/Alert [x] Routine visit [] Staff referral [] Actively dying [] Patient sleeping [x] Family support [] [] Out of room [] Palliative care [] [] Receiving care in room [] Pre-surgical visit [] Trauma [] Long length of stay [x] ICU visit [] Other: Relational/Emotional Strength [] Patient feels connected with others/family/visitors/staff [] Distress [] Loneliness/isolation [] Abandonment Spirituality of Patient [] Person of Elizabeth [] Attends Sabianist of their Elizabeth [] Believes in Prayer [] Reads Bible or Pentecostalism materials [] There are Spiritual issues to be addressed Professor Of Exercise Science Interventions x] Prayer [x] Active listening [x] Non-anxious presence [x] Spiritual/emotional support [] Crisis/trauma care [] Spiritual counseling [] Bereavement support [] Provided bereavement packet [] Provided Bible/devotional materials [] Provided toy/stuffed animal, coloring book to patient or family member [] Provided Communion [] Anointing/[place] [] Salvation [x] Completed spiritual assessment [] Other: Impact on Illness or Injury [] Angry [] Fearful [] Anxious [] Often cries [] Exhaustion [] Unable to work [] Unable to attend church [] Unable to walk/stand [] Unable to read [] Unable to drive [] Unable to eat/drink [] Unable to sleep [] Unable to be with family [] Patient intubated [] Other: Summary patient finished with procedure.. ready to check out.. present Time spent with patient 10 min
--- NOTE | 2020-10-31 12:21 | PM.SDS ---
Short Stay Summary Providers Date of Admit/Discharge: 11/03/20 Attending Provider: Seda Fonseca MD Primary Care Provider: Wily Varghese DO Chief Complaint: cardiac catherization HPI History of Present Illness Godwin Solorio is a 74 year old male 74 yo man wirh PMHx of PAD s/p left femoral to right femoral bypass on 07/04/20 secondary to right illiac artery occlusion by Dr. Donnelly, h/o stenting of left external illiac artery by Dr. Slade , COPD, chronic active smoker ( started at 19 years of age a liitle over a PPD; has cur back from 2 PPD), h/o AAA, depression, HTN presented for evaluation of SOB. He was told he has irregular heart rate. He is here to establish care. He states earlier he used Chantix and quit smoking for about 4 months. Patient has been referred for left heart cath with possible percutaneous coronary intervention as has partial reversiblity in the apical/anteroseptal/inferoseptal boyd and is symptomatic. Review of Systems Const: Denies: fever(s), chills or body aches Eyes: Denies: change in vision, blurry vision or blind spots ENMT: Denies: throat pain, hoarseness or mouth pain Card: Reports: chest pain, lightheadedness and dyspnea on exertion; Denies: palpitations, edema, swelling of feet/ankles, syncope or pre-syncope Resp: Denies: dyspnea, productive cough, non-productive cough or wheezing GI: Denies: abdominal pain, nausea, vomiting, hematemesis, coffee ground emesis or dysphagia : Denies: flank pain, difficulty urinating or urinary urgency Musc: Reports: muscle cramps; Denies: neck pain or back pain Skin/Breast: Denies: rash, pruritus, erythema, photosensitivity or skin pain Neuro: Denies: headache(s) or dizziness Psych: Denies: anxiety, depression, mood swings, suicidal ideation or homicidal ideation Endo: Denies: polyuria, polydipsia or excessive sweating Jared/Lymph: Denies: easy bruising or easy bleeding All/Imm: Denies: urticaria, throat swelling, tongue swelling, facial swelling, acute wheezing, itchy eyes, seasonal rhinorrhea or food intolerance Home Meds/Allergies Home Medications and Allergies Home Medications Medication Instructions Recorded Confirmed Type fluoxetine 10 mg tablet 10 mg PO DAILY 07/12/20 10/30/20 History Allergies Allergy/AdvReac Type Severity Reaction Status Date / Time bee venom protein (honey bee) Allergy ALGY-Anaphy Verified 10/11/20 10:29 laxis morphine Allergy ADR-Nausea Verified 10/11/20 10:29 PFSH Acute PFSH: Medical History AAA (abdominal aortic aneurysm) COPD (chronic obstructive pulmonary disease) Depression Hearing loss Hyperlipidemia Hypertension Migraine PAD (peripheral artery disease) Peripheral vascular disease PTSD (post-traumatic stress disorder) Surgical History History of back surgery Status post femorofemoral bypass surgery Status post insertion of iliac artery stent Social History Smoking and tobacco status: current some day smoker Alcohol intake: former Vitals/I&O/Wt Last Vital Signs Temp 98.0 F 10/30/20 19:00 Pulse 51 L 10/31/20 06:00 Resp 16 10/31/20 05:00 BP 103/55 10/31/20 05:00 Pulse Ox 94 10/31/20 05:00 10/30/20 10/31/20 10/31/20 22:59 06:59 14:59 Intake Total 440 / 560 240 / 240 Output Total 900 / 1200 551 / 1751 400 / 400 Balance -460 / -640 -551 / -1191 -160 / -160 Weight last 48 hrs Weight 141 lb Physical Exam Narrative: EXAM NARRATIVE: GENERAL: Patient is alert, awake and oriented x3. [] NECK: No jugular vein distension. [] HEENT: No cyanosis. No icterus. No pallor. [] HEART: Regular S1 and S2. No murmur, rub or gallop. [] LUNGS: Clear to auscultate bilaterally. [] ABDOMEN: Soft, nontender and nondistended. Positive bowel sounds. No guarding, rebound or tenderness. [] CENTRAL NERVOUS SYSTEM: Grossly nonfocal. [] EXTREMITIES: Lower extremities with no edema bilaterally. Pulses palpable in the lower extremities, both dorsalis pedis and posterior tibial. Right radial access site is normal with no significant hematoma [] Hospital Course Hospital Course 74 yo man wirh PMHx of PAD s/p left femoral to right femoral bypass on 07/04/20 secondary to right illiac artery occlusion by Dr. Donnelly, h/o stenting of left external illiac artery by Dr. Slade , COPD, chronic active smoker ( started at 19 years of age a liitle over a PPD; has cur back from 2 PPD), h/o AAA, depression, HTN presented for evaluation of SOB. He was told he has irregular heart rate. He is here to establish care. He states earlier he used Chantix and quit smoking for about 4 months. EKG showed sinus rhythm, normal axis and possible old anteroseptal infarct. Patient coronary angiogram showed PMP CERTIFIED PROJECT MANAGER of small to medium sized RCA. There is moderate disease of the large LCx. diagonal artery had 60-70% stenosis. Patient had subtotal occlusion/functional PMP CERTIFIED PROJECT MANAGER of the mid LAD. He underwent successful revascularization of the mid LAD with EFFIE x 2. Patient is ready to discharged on aspirin and plavix. As he has sinus bradycardia, will hold betablockers. Patient to follow with his grease press helper, Dr Fonseca as outpatient. SSS Data Data Completed and Pending: Pending at discharge Category Date Time Status ORACLE DRM CONSULTANT request for service Routin e Exams 10/30/20 06:00 Taken Discharge Plan Discharge Patient Disposition: Home Condition: Stable Prescriptions: New clopidogrel 75 mg Tablet 75 mg PO DAILY Qty: 90 RF: 3 Continued fluoxetine 10 mg tablet 10 mg PO DAILY RF: 0 aspirin 81 mg tablet,delayed release (DR/EC) 81 mg PO DAILY Qty: 30 RF: 0 rosuvastatin 5 mg tablet 5 mg PO DAILY Qty: 30 RF: 5 Discontinued metoprolol tartrate 25 mg tablet 25 mg PO BID Qty: 60 RF: 5 clopidogrel 75 mg tablet 75 mg PO DAILY Qty: 5 RF: 0 Discharge Orders: Discharge Order (Routine); Ordered 10/31/20 Ordered By: Dirk Wallis Other Ambulatory Orders: Basic Metabolic Panel (Routine) Timeframe: 3 Days Facility: [facility] - Location: Lab - Main Lab Ordered By: Dirk Wallis Referrals: Maxime Mike FNP [Nurse Practitioner] - 4-7 days (APPOINTMENT AND LAB DRAWS TO BE DONE ON Wednesday AT 3:00 THIS APPOINTMENT IS WITH MAXIME MIKE AND LAB DRAW AND WOUND CHECK AT [facility] . ) Seda Fonseca MD [Physician] - 1 month (PLEASE CALL ,OR AT TIME OF VISIT PLEASE SCHEDUULE FOR THIS FOLLOW UP ) Discharge Diet: Cardiac Discharge Activity: Increase activity as tolerated Patient Instructions: Left Heart Catheterization (DC), Coronary Angioplasty (DC) Activity Restrictions/Additional Instructions: Please do not lift more than 5 pounds of weight for the next 5 days Attestations Medical Necessity Statement*: Care expected to cross 2 midnights. Time Spent in Patient Care*: greater than 30 min Status at Discharge: Cognitive status at discharge: cognitively intact, Behavioral status at discharge: cooperative, Quality Metrics Clinical Quality Measures: During this hospital stay, did patient experience: None Coding Level of Care Code Acute Core Driller Helper for Mariah Bone
--- NOTE | 2020-10-31 12:34 | PC.NURSE ---
D/C medication, 10 day supply Plavix 75 mg sent called into [facility]
--- NOTE | 2020-10-31 13:19 | PC.NURSE ---
discharge instructions printed and given to patient and , IV removed, cath site without complications, VSS, AAOx4, no pain or discomfort. Patient wheeled to private vehicle by this nurse, accompanied by , belongings with patient.
== END 2020-10-31 13:21 | disposition home or self-care (01) ==
LOC: ICU 18:27
PROVIDERS: Internal Medicine; Admitting Provider Internal Medicine Cardiovascular Disease; PCP Family Medicine; Visit Provider Internal Medicine Cardiovascular Disease
DX: I25.10 Atherosclerotic heart disease of native coronary artery without angina pectoris (principal); I10 Essential (primary) hypertension; E78.5 Hyperlipidemia, unspecified; F17.210 Nicotine dependence, cigarettes, uncomplicated; F32.9 Major depressive disorder, single episode, unspecified; J44.9 Chronic obstructive pulmonary disease, unspecified
CPT/HCPCS: 36415; 80048; 84484; 85025; 85347; 85610; 93454; C1725; C1769; C1874; C1887; C1894; C9600; G0378; J1644; J2250; J3010; J3490; J7030; Q0163; Q9967

== ENCOUNTER → 2020-11-04 15:50 | Outpatient (BNVA) | payer OTHER, SELFPAY | PROVIDERS: PCP Family Medicine; Visit Provider Nurse Practitioner Family | DX: I25.119 Atherosclerotic heart disease of native coronary artery with unspecified angina pectoris (principal); I10 Essential (primary) hypertension; F17.200 Nicotine dependence, unspecified, uncomplicated | CPT/HCPCS: 80048 ==

== ENCOUNTER 2020-12-23 08:13 | Outpatient (CLI) | payer OTHER, SELFPAY ==
--- NOTE | 2020-12-23 08:19 | USCV_ITS ---
Godwin Solorio Age: 75 Gender: M : 1945 Exam Date: 12/23/2020 08:41 Ordering Phys: Shay Kim MD Technologist: BAMBI Exam Location: [facility] – [place] Indication: HEART DISEASE BP: / HR: 55 Rhythm: Sinus Technical Quality: Adequate MEASUREMENTS (Male / Female) Normal Values 2D ECHO LV Diastolic Diameter PLAX 3.9 cm 4.2 - 5.9 / 3.9 - 5.3 cm LV Systolic Diameter PLAX 2.6 cm LV Chamber Size 3.5 cm IVS Diastolic Thickness 0.9 cm 0.6 - 1.0 / 0.6 - 0.9 cm IVS Systolic Thickness 1.1 cm LVPW Diastolic Thickness 1.2 cm 0.6 - 1.0 / 0.6 - 0.9 cm LVPW Systolic Thickness 1.4 cm RV Chamber Size 2.6 cm LVOT Diameter 2.0 cm LV Ejection Fraction 2D Teich 64.0 % LV Ejection Fraction MOD 2C 59.5 % LV Ejection Fraction 2C AL 60.9 % LA Diameter 2.4 cm LA Width 2.5 cm LA Height 2.7 cm RA Width 2.9 cm RA Height 3.3 cm Aorta at Sinotubular Diameter 2.7 cm M-MODE LV Diastolic Diameter MM 4.7 cm 4.2 - 5.9 / 3.9 - 5.3 cm LV Systolic Diameter MM 3.1 cm LV Ejection Fraction MM Teich 63.3 % IVS Diastolic Thickness MM 0.9 cm 0.6 - 1.0 / 0.6 - 0.9 cm IVS Systolic Thickness MM 1.0 cm LVPW Diastolic Thickness MM 0.8 cm 0.6 - 1.0 / 0.6 - 0.9 cm LVPW Systolic Thickness MM 1.6 cm RV Diastolic Diameter MM 1.6 cm Aortic Annulus Diameter 3.5 cm LA Ao Ratio MM 0.7 MV E Point Septal Separation 0.5 cm DOPPLER AV Peak Velocity 139.0 cm/s LVOT Peak Velocity 78.7 cm/s AV Area Cont Eq vti 1.9 cm squared AV Area Cont Eq pk 1.8 cm squared MV Area PHT 3.1 cm squared Mitral E to A Ratio 1.7 MV E' Velocity 40.0 cm/s Mitral E to MV E' Ratio 6.9 Mitral E to LV E' Lateral Ratio 10.5 Mitral E to LV E' Septal Ratio 5.1 TR Peak Velocity 144.2 cm/s TR Peak Gradient 8.3 mmHg TR Mean Velocity 105.6 cm/s TR Mean Gradient 4.9 mmHg TR Velocity Time Integral 36.5 cm Right Atrial Pressure 3.0 mmHg Pulmonary Artery Systolic Pressu 11.3 mmHg PV Peak Velocity 60.0 cm/s RV Acceleration Time 0.1 s RV Ejection Time 0.3 s RV AcT/ET 0.3 FINDINGS Left Ventricle Normal left ventricular size, systolic function and wall thickness, with no regional wall motion abnormalities. Left ventricular ejection fraction is estimated at 60 %. No regional wall motion abnormalities. Normal diastolic function. Right Ventricle Normal right ventricular size and systolic function. RVSP could not be calculated due to incomplete tricuspid regurgitation velocity profile. Right Atrium Normal right atrial size. Left Atrium Normal left atrial size. Mitral Valve Thickened mitral valve. No mitral valve stenosis. No significant mitral valve regurgitation. Aortic Valve Aortic valve not well visualized. No aortic valve stenosis. No aortic valve regurgitation. Tricuspid Valve Structurally normal tricuspid valve. Trace tricuspid valve regurgitation. Pulmonic Valve Pulmonic valve not well visualized. No pulmonary valve stenosis. Trace pulmonary valve regurgitation. Pericardium No pericardial effusion. Aorta Aorta not well visualized. CONCLUSIONS 1. This is a technically difficult study. 2. Normal left ventricular size, systolic function and wall thickness, with no regional wall motion abnormalities. Left ventricular ejection fraction is estimated at 60 %. No regional wall motion abnormalities. Normal diastolic function. 3. Normal right ventricular size and systolic function. 4. No significant valvular abnormality. 5. No prior similar studies to compare. Seda Fonseca MD (Electronically Signed) Final Date: 26 Dec 2020 14:51 S
== END 2020-12-23 08:14 | disposition home or self-care (01) ==
LOC: US 08:14
PROVIDERS: PCP Nurse Practitioner; Visit Provider Orthopaedic Surgery
DX: I25.9 Chronic ischemic heart disease, unspecified (principal)
CPT/HCPCS: 93306

== ENCOUNTER → 2021-01-22 10:02 | Outpatient (BNVA) | payer OTHER, SELFPAY | PROVIDERS: PCP Nurse Practitioner; Referring Provider Nurse Practitioner; Visit Provider Podiatrist Foot & Ankle Surgery | DX: M79.672 Pain in left foot (principal); Q82.8 Other specified congenital malformations of skin; M21.41 Flat foot [pes planus] (acquired), right foot; M21.42 Flat foot [pes planus] (acquired), left foot | CPT/HCPCS: 73630 ==

== ENCOUNTER 2021-07-10 10:04 | Outpatient (CLI) | payer OTHER, SELFPAY ==
--- NOTE | 2021-07-10 11:00 | USCV_ITS ---
Godwin Solorio Age: 75 Gender: M : 1945 Exam Date: 07/10/2021 10:40 Ordering Phys: Seda Fonseca MD ([email or web address]) Technologist: OG [place] [facility] [place]: PERIPHERAL VASCULAR DISEASE Risk Factors: Previous Vascular Surgery: RIGHT LEFT BP: 139.0 / 76.00 BP: 145.0/ 75.00 0 0 Waveform Velocity (cm/s) Velocity (cm/s) Waveform Iliac Prox 129.2 Biphasic Iliac Mid 154.2 Biphasic Iliac Distal 136.7 Biphasic Biphasic 110.3 METAL CNC OPERATOR 84.9 Biphasic Biphasic 88.2 SFA Prox 91.5 Biphasic Biphasic 111.4 SFA Mid 67.2 Biphasic Biphasic 66.4 SFA Dist 49.7 Biphasic Monophasic 48.0 POP 47.0 Biphasic Monophasic 35.0 HEALTH CAREERS INSTRUCTOR 28.6 Biphasic Monophasic 27.6 DPA 26.6 Biphasic 1.0 ERNIE 0.8 FINDINGS RT DPA 120 RT HEALTH CAREERS INSTRUCTOR 150 LT DPA 120 LT HEALTH CAREERS INSTRUCTOR 100 LT-RT FEM BYPASS No Doppler flow signals in the right iliac artery. Mild to moderate diffuse plaques in the femoral arteries bilaterally. Mild diffuse plaque in the left iliac artery Normal resting ERNIE on the right side Slightly diminished resting ERNIE on the left side CONCLUSIONS Patent femorofemoral bypass graft(left to right) Total occlusion of the iliac artery on the right side. Normal resting ERNIE on the right side, suggesting no significant arterial obstruction, distal to the bypass. Mild peripheral artery disease on the left side. No similar previous studies available for comparison Dr Laura Guo MD [facility] (Electronically Signed) Final Date: 11 July 2021 14:33 S
== END 2021-07-10 10:05 | disposition home or self-care (01) ==
LOC: RAD 10:08
PROVIDERS: PCP Nurse Practitioner; Visit Provider Internal Medicine Cardiovascular Disease
DX: I73.9 Peripheral vascular disease, unspecified (principal)
CPT/HCPCS: 93925

== ENCOUNTER 2021-08-26 11:53 | Outpatient (CLI) | payer OTHER, SELFPAY ==
--- NOTE | 2021-08-26 14:09 | CT_ITS ---
WS: [id number] CTA ABDOMEN PELVIS TECHNIQUE: Contrast enhanced CTA of the abdominal aorta and pelvis with coronal and sagittal reformat elle images and additional MIP Images. CLINICAL INFORMATION: AAA COMPARISON: April 12, 2019 DLP: 532.[address] scans at [facility] use at least one of these dose optimization techniques: automated e xposure control; mA and/or kV adjustment per patient size (includes targeted exams where dose is matc hed to clinical indication); or iterative reconstruction. FINDINGS: Normal caliber abdominal aorta. Eccentric mural thrombus in the mid and distal abdominal aorta. Moder ate aortic calcification. Small left lateral pseudoaneurysm or ulceration in the infrarenal abdominal aorta measuring 7 mm unchanged from 2019. Slight aneurysmal dilatation of th 2.1 x 2.3 cm unchanged. Chronic occlusion right common iliac artery unchanged. Slight external iliac artery is occluded. Coleman nt femorofemoral bypass graft. Celiac and SMA are patent. Mild stenosis at the celiac origin. Proxima l renal arteries are patent. Subsegmental atelectasis in the lung bases. Calcified granulomas left lower lobe. Noncalcified nodule right lower lobe laterally along the fissure measuring 5 mm. Normal liver. A few tiny hepatic cysts. Normal GE junction. Small splenule. Splenic granulomas. Adrenal glands are normal. Normal pancreatic parenchymal enhancement. Sigmoid diverticulosis. No evidence of acute diverticulitis. Normal appendix in the right lower quadr ant. No periaortic or retroperitoneal lymphadenopathy. Mild diffuse bladder wall thickening. Prominen t prostate measuring 4.5 CM. Bladder is decompressed. Mild disc bulging L4-L5 and L5-S1. Laminectomy defects lower lumbar spine L4-L5 and L5-S1. CT/CT angio abdomen pelvis [id number] IMPRESSION: 1. Moderate aortic atheromatous disease with calcification. Slightly aneurysma l abdominal aorta measuring 2.1 x 2.3 cm unchanged. No significant aneurysm. 2. Eccentric mural thrombus with small left eccentric pseudoaneurysm or ulcera tion measuring 7 mm unchanged from 2019. 3. Chronic occlusion of the right common iliac artery and external iliac arter y with femorofemoral bypass graft. 4. Mild stenosis at the celiac origin is patent. SMA is patent. Proximal renal arteries are patent. 5. Sigmoid diverticulosis. No evidence of acute diverticulitis. 6. Prominent prostate measuring 4.5 CM. Recommend correlation PSA. Evidence of bladder outlet obstruction. 7. Noncalcified nodule right lower lobe laterally measuring 5 mm. Recommend 6 month follow-up chest CT.
[2021-08-26] MEDS: iodixanol 320 mg/mL 100mL Btl IV (14:24)
== END 2021-08-26 11:54 | disposition home or self-care (01) ==
LOC: RAD 11:55
PROVIDERS: PCP Nurse Practitioner; Visit Provider Nurse Practitioner
DX: I71.4 Abdominal aortic aneurysm, without rupture (principal); I74.5 Embolism and thrombosis of iliac artery; K57.30 Diverticulosis of large intestine without perforation or abscess without bleeding; N40.0 Benign prostatic hyperplasia without lower urinary tract symptoms; R91.1 Solitary pulmonary nodule; I70.0 Atherosclerosis of aorta
CPT/HCPCS: 74174

== ENCOUNTER → 2021-10-16 13:55 | Outpatient (BNVA) | payer OTHER, SELFPAY | PROVIDERS: PCP Nurse Practitioner; Referring Provider Nurse Practitioner; Visit Provider Nurse Practitioner Family | DX: N40.1 Benign prostatic hyperplasia with lower urinary tract symptoms (principal) | CPT/HCPCS: 81003 ==

== ENCOUNTER → 2021-10-24 09:57 | Outpatient (BNVA) | payer OTHER, SELFPAY | PROVIDERS: PCP Nurse Practitioner; Visit Provider Thoracic Surgery (Cardiothoracic Vascular Surgery) | DX: I71.4 Abdominal aortic aneurysm, without rupture (principal); Z87.891 Personal history of nicotine dependence | CPT/HCPCS: 99213 ==

== ENCOUNTER 2021-10-30 13:34 | Outpatient (CLI) | payer OTHER, SELFPAY ==
--- NOTE | 2021-10-30 13:52 | CT_ITS ---
WS: [id number] CT CHEST TECHNIQUE: Contrast enhanced CT of the chest with coronal and sagittal reformatted images. CLINICAL INFORMATION: FOLLOW UP COMPARISON: None. DLP: 607.[address] scans at [facility] use at least one of these dose optimization techniques: automated e xposure control; mA and/or kV adjustment per patient size (includes targeted exams where dose is matc hed to clinical indication); or iterative reconstruction. FINDINGS: Moderate chronic emphysematous changes. No acute pulmonary infiltrates. No focal consolidation or ple ural fluid. Subsegmental atelectasis LEFT lower lobe. A few calcified granulomas. Slightly hazy opaci ty RIGHT lower lobe along the fissure measuring 6 mm is unchanged since August 26, 2021 CTA. Normal caliber thoracic aorta. Aortic calcification. Proximal main pulmonary arteries are normal. Cor onary calcification. No mediastinal or hilar lymphadenopathy. No axillary lymphadenopathy. Adrenal glands are normal. Splenic granulomas. Small splenules. Normal GE junction. CT/CT chest w con* [id number] IMPRESSION: 1. Moderate chronic emphysematous changes. No acute pulmonary infiltrates. 2. Small hazy nodule RIGHT lower lobe along the fissure is stable compared to the recent study measuring 6 mm, recommend 6 month follow-up. 3. No mediastinal or hilar lymphadenopathy. 4. Mild aortic and coronary calcification.
[2021-10-30 15:10] LABS: Blood Urea Nitrogen 11 mg/dL (8-23)
[2021-10-30] MEDS: iohexol 350 mg/mL 100 mL Btl IV (15:20)
== END 2021-10-30 13:35 | disposition home or self-care (01) ==
LOC: RAD 13:41
PROVIDERS: PCP Nurse Practitioner; Visit Provider Nurse Practitioner
DX: Z01.89 Encounter for other specified special examinations (principal); I70.0 Atherosclerosis of aorta; I25.10 Atherosclerotic heart disease of native coronary artery without angina pectoris; R91.1 Solitary pulmonary nodule
CPT/HCPCS: 71260; 82565; 84520

== ENCOUNTER 2021-11-18 14:21 | Outpatient (CLI) | payer OTHER, SELFPAY ==
--- NOTE | 2021-11-18 14:30 | USCV_ITS ---
Godwin Solorio Age: 75 Gender: M : 1945 Exam Date: 11/18/2021 14:39 Ordering Phys: Phoenix Donnelly MD (Andy) ([email or web address]) Technologist: Exam Location: [facility] [place] Indication: ? aaa HISTORY: Diameter (cm) AP x Transverse x Length Velocity (cm/s) Waveform Prox Aorta: 1.78 x 2.20 x 42.00 Biphasic Mid Aorta: 1.45 x 1.58 x 56.70 Biphasic Distal Aorta: 1.84 x 2.18 x 54.00 Biphasic Right Iliac Prox: x x Left Iliac Prox: 1.06 x 1.36 x 100.70 Stent Prox Landing x x Aneurysmal Sac Max x x Lt Lat Sac Dim Rt Lat Sac Dim Stent Dist Landing x x Right Iliac Stent x x Left Iliac Stent x x Right Renal Art Left Renal Art FINDINGS: hx of rt iliac occusion lt to rt ileio femoral bypass Normal abdominal aortic dimensions. Mild diffuse plaques in the abdominal aorta. Normal left iliac artery dimension. Normal Doppler flow velocity CONCLUSIONS Normal abdominal aortic dimensions with no evidence of aneurysm Mild diffuse plaques in the aorta Normal left iliac artery dimensions with no evidence of stenosis. Possible occlusion of the right common iliac artery No similar previous studies are available for comparison Dr Laura Guo MD [facility] (Electronically Signed) Final Date: 19 November 2021 20:17 S
== END 2021-11-18 14:22 | disposition home or self-care (01) ==
LOC: RAD 14:23
PROVIDERS: PCP Nurse Practitioner; Visit Provider Thoracic Surgery (Cardiothoracic Vascular Surgery)
DX: I71.4 Abdominal aortic aneurysm, without rupture (principal)
CPT/HCPCS: 93978

== ENCOUNTER → 2021-12-12 10:40 | Outpatient (BNVA) | payer OTHER, SELFPAY | PROVIDERS: PCP Nurse Practitioner; Visit Provider Urology | DX: N40.1 Benign prostatic hyperplasia with lower urinary tract symptoms (principal); I71.4 Abdominal aortic aneurysm, without rupture; I25.119 Atherosclerotic heart disease of native coronary artery with unspecified angina pectoris; I73.9 Peripheral vascular disease, unspecified; I10 Essential (primary) hypertension; J44.9 Chronic obstructive pulmonary disease, unspecified | CPT/HCPCS: 51741; 51798; 81003; 99213 ==

== ENCOUNTER 2022-06-28 20:16 | Emergency (ER) | payer OTHER, SELFPAY ==
[2022-06-28 20:35] VITALS: BP 110/66; PULSE 63; RESP 16; TEMP 37.3; O2SAT 95; BMI 25.6
--- NOTE | 2022-06-28 20:47 | ECG_ITS ---
[facility] Test Date: 2022-06-28 Pat Name: Godwin Solorio Department: Room: Gender: Male College Archivist: : 1945 Requested By: Americo Ritchie Order Number: [id number] Lizette MD: Laura Guo M.D. Measurements Intervals [place] Rate: 60 P: 69 NC: 164 QRS: 81 QRSD: 92 T: 87 QT: 424 QTc: 426 Interpretive Statements SINUS RHYTHM SEPTAL MYOCARDIAL INFARCTION , OF INDETERMINATE AGE [40+ ms Q WAVE IN V1/V2] Compared to ECG 08/30/2019 11:23:54 No significant changes Electronically Signed On 06-29-2022 14:20:40 PRINCIPAL ADMINISTRATIVE CLERK by Laura Guo M.D. [id number]
--- NOTE | 2022-06-28 20:50 | XRR_ITS ---
PROCEDURE INFORMATION: Exam: XR Chest Exam date and time: 06/28/2022 10:53 PM Age: 76 years old Clinical indication: Pain; Chest pressure; Prior surgery; Surgery date: 6+ months; Surgery type: 2 heart stents; Additional info: Cp TECHNIQUE: Imaging protocol: Radiologic exam of the chest. Views: 1 view. COMPARISON: CT chest w con* [id number] 10/30/2021 2:57 PM FINDINGS: Lungs: Unremarkable. No consolidation. Pleural spaces: Unremarkable. No pleural effusion. No pneumothorax. Heart/Mediastinum: Unremarkable. No cardiomegaly. Bones/joints: Unremarkable. XR/XR chest 1V portable [id number] IMPRESSION: No acute findings.
--- NOTE | 2022-06-28 21:39 | ED_ITS ---
Documented by User: Dajuan Fatima MD 07/10/22 19:42 HPI - Dizziness General: Chief Complaint: Dizziness Stated Complaint: vertigo Time Seen by Provider: 06/28/22 21:39 History of Present Illness: HPI Narrative: Mr. Solorio is a 76-year-old gentleman with significant past medical history of COPD, peripheral arterial disease, CAD, hypertension, COPD presenting to the emergency department due to generalized illness. He reports feeling intermittent chills and generalized malaise associated with generalized weakness for few days however has been more significant today. Has had intermittent episodes of lightheadedness and unsteady feeling. Symptoms appear to be worse with movement but not reliably so. Intensity symptoms is moderate to severe. Course has worsened no focal other neurologic deficits reported. No other specific changes in health, exacerbating, or alleviating factors identified. Onset (ago): day(s) Timing: intermittent Severity: severe Description: lightheadedness, off-balance and difficulty walking Exacerbating factors: movement/ambulation and change in body position Relieving factors: nothing Associated symptoms: Reports chills, cough, malaise and weakness Review of Systems General: Reports: 10 or more systems reviewed and unremarkable except in HPI and below Const: Reports: chills and malaise PFSH ED PFSH: Medical History AAA (abdominal aortic aneurysm) COPD (chronic obstructive pulmonary disease) Depression Hearing loss Hyperlipidemia Hypertension Migraine PAD (peripheral artery disease) Peripheral vascular disease PTSD (post-traumatic stress disorder) Surgical History History of back surgery Status post femorofemoral bypass surgery Status post insertion of iliac artery stent Family History Father , Age 67 Lung disease Emphysema Diabetes Mother , Age 80 Parkinson's disease Social History Smoking and tobacco status: former smoker Alcohol intake: former Marital status: Current occupational status: retired History of recent travel: No Physical Exam Const: COMMON NORMALS: patient oriented x3 and alert GENERAL APPEARANCE: cooperative and well developed HENMT: COMMON NORMALS: normocephalic and atraumatic HEAD & SCALP: normocephalic and atraumatic THROAT: posterior oropharynx normal Eye: COMMON NORMALS: conjunctivae normal CONJUNCTIVA: Yes conjunctivae normal SCLERA: sclerae normal Neck/C-Spine: COMMON NORMALS: supple GENERAL: Yes trachea midline Resp: COMMON NORMALS: clear to auscultation bilaterally EFFORT & INSPECTION: Yes able to speak in complete sentences AUSCULTATION: clear to auscultation bilaterally Cardio: COMMON NORMALS: regular rate and regular rhythm RATE: regular rate RHYTHM: regular rhythm GI: COMMON NORMALS: Soft to palpation PALPATION: Yes Soft to palpation and No Tenderness to palpation present (GI) PERCUSSION: normal to percussion Extremity: GENERAL: Yes normal exam except as noted and No edema Neuro: COMMON NORMALS: patient oriented x3, CN's II-XII intact bilaterally, moves all extremities, no focal motor deficits and no sensory deficits noted SENSORIUM/ORIENTATION: Yes alert and No Orientation impaired Psych: COMMON NORMALS: mental status grossly normal and Normal thought process present THOUGHT PROCESS: Normal thought process present Course Vital Signs: Vital signs: Vital Signs Temperature 99.2 F 06/28/22 20:35 Pulse Rate 60 06/29/22 00:59 Respiratory Rate 16 06/29/22 00:59 Blood Pressure 131/64 06/28/22 22:50 Pulse Oximetry 95 06/29/22 00:59 Oxygen Delivery Me thod 06/28/22 20:35 MDM - Dizziness Medical Decision Making 76-year-old gentleman presenting due to generalized illness. Patient does report some neurologic symptoms though NIHSS 0 on exam. Exam otherwise as above, mildly ill-appearing. EKG shows sinus bradycardia, no STEMI. Labs with no significant hematologic abnormality. Metabolic panel with mild dehydration. Initial troponin negative with 2-hour pending. COVID PCR pending. Chest x-ray with no lobar consolidation or pneumothorax. Patient treated with fluids and meclizine with only minimal improvement at which point CT imaging was deemed appropriate. CT negative for acute pathology. Handed off to Dr. Ritchie pending completion of ED evaluation and disposition. Patient presents here with dizziness and weakness likely from COVID he did test positive for COVID here he feels much improved here after IV fluids he is stable for discharge she is to follow-up with PCP and return if worsening. Medical Records I reviewed the patient's medical records. Lab Data I reviewed the patient's lab results. 11/27/22 21:45 06/28/22 21:45 Radiology Impressions Chest X-Ray 06/28/22 20:50 IMPRESSION: No acute findings. Head CT 06/28/22 21:49 IMPRESSION: 1. Mild chronic microvascular disease. 2. No acute intracranial lesion or injury. Laboratory Results WBC 5.6 10^3/uL (4.0-10.0) 06/28/22 21:45 RBC 4.93 10^6/uL (4.1-5.3) 06/28/22 21:45 Hgb 15.0 g/dL (11.7-16.6) 06/28/22 21:45 Hct 45.0 % (42.0-52.0) 06/28/22 21:45 MCV 91.3 fl (80-94) 06/28/22 21:45 MCH 30.4 pg (28.0-34.0) 06/28/22 21:45 MCHC 33.3 g/dL (30.0-36.0) 06/28/22 21:45 RDW 12.9 % (12.1-15.1) 06/28/22 21:45 Plt Count 193 10^3/cmm (130-400) 06/28/22 21:45 MPV 9.2 fL (7.4-10.4) 06/28/22 21:45 Neut % (Auto) 74.3 % 06/28/22 21:45 Lymph % (Auto) 9.3 % 06/28/22 21:45 [place] % (Auto) 14.3 % 06/28/22 21:45 Eos % (Auto) 0.5 % 06/28/22 21:45 Baso % (Auto) 0.5 % 06/28/22 21:45 Neut # (Auto) 4.16 10^3/uL (1.8-7.7) 06/28/22 21:45 Lymph # (Auto) 0.5 10^3/uL (0.8-4.8) L 06/28/22 21:45 [place] # (Auto) 0.8 10^3/uL (0.2-0.9) 06/28/22 21:45 Eos # (Auto) 0.0 10^3/uL (0.0-0.8) 06/28/22 21:45 Baso # (Auto) 0.0 10^3/uL (0.0-0.1) 06/28/22 21:45 Nucleated RBC % (auto) 0 % 06/28/22 21:45 Nucleated RBCs # 0.0 /100WBC 06/28/22 21:45 Sodium 131 mmol/L (136-145) L 06/28/22 21:45 Potassium 4.3 mmol/L (3.5-5.1) 06/28/22 21:45 Chloride 95 mmol/L (98-107) L 06/28/22 21:45 Carbon Dioxide 24 mmol/L (22-29) 06/28/22 21:45 Anion Gap 16.3 (5-19) 06/28/22 21:45 BUN 13 mg/dL (8-23) 06/28/22 21:45 Creatinine 1.0 mg/dL (0.7-1.2) 06/28/22 21:45 GFR Calculation Not Reportable 06/28/22 21:45 Glucose 98 mg/dL (65-115) 06/28/22 21:45 Calculated Osmolality 272 mOsm/kg (285-295) L 06/28/22 21:45 Calcium 9.2 mg/dL (8.5-10.5) 06/28/22 21:45 Total Bilirubin 0.5 mg/dL (0.15-1.2) 06/28/22 21:45 AST 21 U/L (0-40) 06/28/22 21:45 ALT 11 U/L (0-41) 06/28/22 21:45 Alkaline Phosphatase 92 U/L (40-130) 06/28/22 21:45 Troponin T Baseline 10 ng/L (0-15) 06/28/22 21:45 Troponin T 120 Minute 7.22 ng/L (0-15) 06/28/22 00:00 Delta Troponin T -2.78 ABS# (0-10) L 06/28/22 00:00 Total Protein 7.0 g/dL (6.6-8.7) 06/28/22 21:45 Albumin 4.4 g/dL (3.5-5.2) 06/28/22 21:45 Globulin 2.6 g/dL (1.3-4.6) 06/28/22 21:45 Coronavirus 229E (PCR) Not detected (NOT DETECT) 06/28/22 21:55 SARS-CoV-2 (PCR) Detected (NOT DETECT) A 06/28/22 21:55 Discharge Plan Discharge Patient Disposition: Home Clinical Impression: Dehydration, Dizziness, COVID-19 Condition: Stable Prescriptions: No Action aspirin 81 mg tablet,delayed release (DR/EC) 81 mg PO DAILY Qty: 30 0RF fluoxetine 10 mg tablet 20 mg PO DAILY cetirizine [All Day Allergy (cetirizine)] 10 mg tablet 10 mg PO DAILY PRN tamsulosin 0.4 mg capsule 0.4 mg PO BID Qty: 180 3RF rosuvastatin 5 mg tablet 5 mg PO DAILY Qty: 30 5RF cholecalciferol (vitamin D3) 50 mcg (2,000 unit) capsule 50 mcg PO DAILY (DME) custom molded accommodative orthotic See Rx Instructions .Route .MEDSUPPLY Qty: 1 0RF Rx Instructions: by [facility] ([facility]) custom molded accommodative orthotics L code 3030. See Rx Instructions .Route .MEDSUPPLY Qty: 1 0RF Rx Instructions: As directed clopidogrel 75 mg tablet 75 mg PO DAILY Qty: 90 3RF Discharge Orders: Discharge ED (Routine); Ordered 06/29/22 Ordered By: Americo Ritchie Referrals: Miryam Hutson FNP [Primary Care Provider] - Discharge Diet: Usual diet Discharge Activity: Increase activity as tolerated Patient Instructions: Dehydration (ED), Near Syncope (ED), Dizziness (ED), COVID-19 (Coronavirus Disease 2019) (ED) Activity Restrictions/Additional Instructions: Thank you for visiting the emergency department. You were seen and evaluated for generalized illness. The exact cause of your symptoms is unclear though does not appear to need hospitalization at this time. You have evidence of mild dehydration. Please ensure that you are staying hydrated. Please follow-up with your primary care provider. Return to the emergency department for uncontrolled symptoms, inability to tolerate oral intake, any new neurologic symptoms, or anything else that you are concerned about a feel needs emergency department evaluation. Coding Level of Care Code ED Phlebotomy Technician for Mariah Fwd Documented by User: Americo Ritchie MD 06/29/22 00:54 HPI - Dizziness General: Chief Complaint: Dizziness Stated Complaint: vertigo Time Seen by Provider: 06/28/22 21:39 PFS ED PFSH: Medical History AAA (abdominal aortic aneurysm) COPD (chronic obstructive pulmonary disease) Depression Hearing loss Hyperlipidemia Hypertension Migraine PAD (peripheral artery disease) Peripheral vascular disease PTSD (post-traumatic stress disorder) Surgical History History of back surgery Status post femorofemoral bypass surgery Status post insertion of iliac artery stent Family History Father , Age 67 Lung disease Emphysema Diabetes Mother , Age 80 Parkinson's disease Social History Smoking and tobacco status: former smoker Alcohol intake: former Marital status: Current occupational status: retired History of recent travel: No Course 2 Vital Signs: Vital signs: Vital Signs Temperature 99.2 F 06/28/22 20:35 Pulse Rate 60 06/29/22 00:59 Respiratory Rate 16 06/29/22 00:59 Blood Pressure 131/64 06/28/22 22:50 Pulse Oximetry 95 06/29/22 00:59 Oxygen Delivery Me thod 06/28/22 20:35 MDM - Dizziness Medical Decision Making Patient presents here with dizziness and weakness likely from COVID he did test positive for COVID here he feels much improved here after IV fluids he is stable for discharge she is to follow-up with PCP and return if worsening. Lab Data 06/28/22 21:45 06/28/22 21:45 Radiology Impressions Chest X-Ray 06/28/22 20:50 IMPRESSION: No acute findings. Head CT 06/28/22 21:49 IMPRESSION: 1. Mild chronic microvascular disease. 2. No acute intracranial lesion or injury. Laboratory Results WBC 5.6 10^3/uL (4.0-10.0) 06/28/22 21:45 RBC 4.93 10^6/uL (4.1-5.3) 06/28/22 21:45 Hgb 15.0 g/dL (11.7-16.6) 06/28/22 21:45 Hct 45.0 % (42.0-52.0) 06/28/22 21:45 MCV 91.3 fl (80-94) 06/28/22 21:45 MCH 30.4 pg (28.0-34.0) 06/28/22 21:45 MCHC 33.3 g/dL (30.0-36.0) 06/28/22 21:45 RDW 12.9 % (12.1-15.1) 06/28/22 21:45 Plt Count 193 10^3/cmm (130-400) 06/28/22 21:45 MPV 9.2 fL (7.4-10.4) 06/28/22 21:45 Neut % (Auto) 74.3 % 06/28/22 21:45 Lymph % (Auto) 9.3 % 06/28/22 21:45 [place] % (Auto) 14.3 % 06/28/22 21:45 Eos % (Auto) 0.5 % 06/28/22 21:45 Baso % (Auto) 0.5 % 06/28/22 21:45 Neut # (Auto) 4.16 10^3/uL (1.8-7.7) 06/28/22 21:45 Lymph # (Auto) 0.5 10^3/uL (0.8-4.8) L 06/28/22 21:45 [place] # (Auto) 0.8 10^3/uL (0.2-0.9) 06/28/22 21:45 Eos # (Auto) 0.0 10^3/uL (0.0-0.8) 06/28/22 21:45 Baso # (Auto) 0.0 10^3/uL (0.0-0.1) 06/28/22 21:45 Nucleated RBC % (auto) 0 % 06/28/22 21:45 Nucleated RBCs # 0.0 /100WBC 06/28/22 21:45 Sodium 131 mmol/L (136-145) L 06/28/22 21:45 Potassium 4.3 mmol/L (3.5-5.1) 06/28/22 21:45 Chloride 95 mmol/L (98-107) L 06/28/22 21:45 Carbon Dioxide 24 mmol/L (22-29) 06/28/22 21:45 Anion Gap 16.3 (5-19) 06/28/22 21:45 BUN 13 mg/dL (8-23) 06/28/22 21:45 Creatinine 1.0 mg/dL (0.7-1.2) 06/28/22 21:45 GFR Calculation Not Reportable 06/28/22 21:45 Glucose 98 mg/dL (65-115) 06/28/22 21:45 Calculated Osmolality 272 mOsm/kg (285-295) L 06/28/22 21:45 Calcium 9.2 mg/dL (8.5-10.5) 06/28/22 21:45 Total Bilirubin 0.5 mg/dL (0.15-1.2) 06/28/22 21:45 AST 21 U/L (0-40) 06/28/22 21:45 ALT 11 U/L (0-41) 06/28/22 21:45 Alkaline Phosphatase 92 U/L (40-130) 06/28/22 21:45 Troponin T Baseline 10 ng/L (0-15) 06/28/22 21:45 Troponin T 120 Minute 7.22 ng/L (0-15) 06/28/22 00:00 Delta Troponin T -2.78 ABS# (0-10) L 06/28/22 00:00 Total Protein 7.0 g/dL (6.6-8.7) 06/28/22 21:45 Albumin 4.4 g/dL (3.5-5.2) 06/28/22 21:45 Globulin 2.6 g/dL (1.3-4.6) 06/28/22 21:45 Coronavirus 229E (PCR) Not detected (NOT DETECT) 06/28/22 21:55 SARS-CoV-2 (PCR) Detected (NOT DETECT) A 06/28/22 21:55 Discharge Plan Discharge Patient Disposition: Home Clinical Impression: Dehydration, Dizziness, COVID-19 Condition: Stable Prescriptions: No Action aspirin 81 mg tablet,delayed release (DR/EC) 81 mg PO DAILY Qty: 30 0RF fluoxetine 10 mg tablet 20 mg PO DAILY cetirizine [All Day Allergy (cetirizine)] 10 mg tablet 10 mg PO DAILY PRN tamsulosin 0.4 mg capsule 0.4 mg PO BID Qty: 180 3RF rosuvastatin 5 mg tablet 5 mg PO DAILY Qty: 30 5RF cholecalciferol (vitamin D3) 50 mcg (2,000 unit) capsule 50 mcg PO DAILY (DME) custom molded accommodative orthotic See Rx Instructions .Route .MEDSUPPLY Qty: 1 0RF Rx Instructions: [facility] ([facility]) custom molded accommodative orthotics L code 3030. See Rx Instructions .Route .MEDSUPPLY Qty: 1 0RF Rx Instructions: As directed clopidogrel 75 mg tablet 75 mg PO DAILY Qty: 90 3RF Discharge Orders: Discharge ED (Routine); Ordered 06/29/22 Ordered By: Americo Ritchie Referrals: Miryam Hutson, MANAGER PERSONNEL SELECTION [Primary Care Provider] - Discharge Diet: Usual diet Discharge Activity: Increase activity as tolerated Patient Instructions: Dehydration (ED), Near Syncope (ED), Dizziness (ED), COV ID-19 (Coronavirus Disease 2019) (ED) Activity Restrictions/Additional Instructions: Thank you for visiting the emergency department. You were seen and evaluated for generalized illness. The exact cause of your symptoms is unclear though does not appear to need hospitalization at this time. You have evidence of mild dehydration. Please ensure that you are staying hydrated. Please follow-up with your primary care provider. Return to the emergency department for uncontrolled symptoms, inability to tolerate oral intake, any new neurologic symptoms, or anything else that you are concerned about a feel needs emergency department evaluation. Coding Level of Care Code ED Phlebotomy Technician for Mariah Bone
--- NOTE | 2022-06-28 21:49 | CTR_ITS ---
PROCEDURE INFORMATION: Exam: CT Head Without Contrast Exam date and time: 06/28/2022 9:59 PM Age: 76 years old Clinical indication: Dizziness TECHNIQUE: Imaging protocol: Computed tomography of the head without contrast. Radiation optimization: All CT scans at this facility use at least one of these dose optimization techniques: automated exposure control; mA and/or kV adjustment per patient size (includes targeted exams where dose is matched to clinical indication); or iterative reconstruction. COMPARISON: No relevant prior studies available. RADIATION DOSE METRICS: Total DLP (mGy-cm): 1170.68 FINDINGS: Brain: There is mild periventricular white matter lucency most consistent with mild chronic microvascular disease. No acute infarct. No hemorrhage or extra-axial collection. No mass. Cerebral ventricles: There is no hydrocephalus. Paranasal sinuses: Visualized sinuses are unremarkable. No fluid levels. Mastoid air cells: Visualized mastoid air cells are well aerated. Bones/joints: Unremarkable. No acute fracture. Soft tissues: Unremarkable. CT/CT head wo con* [id number] IMPRESSION: 1. Mild chronic microvascular disease. 2. No acute intracranial lesion or injury.
[2022-06-28 22:04] LABS: Basophils % 0.5 %; Eosinophils % 0.5 %; Lymphocytes # 0.5 10^3/uL (0.8-4.8); Lymphocytes % 9.3 %; Mean Corpuscular HGB Conc 33.3 g/dL (30.0-36.0); Mean Corpuscular Hemoglobin 30.4 pg (28.0-34.0); Mean Corpuscular Volume 91.3 fl (80-94); Mean Platelet Volume 9.2 fL (7.4-10.4); Monocytes # 0.8 10^3/uL (0.2-0.9); Monocytes % 14.3 %; Neutrophils # 4.16 10^3/uL (1.8-7.7); Neutrophils % 74.3 %; Nucleated Red Blood Cells % 0 %; Platelet Count 193 10^3/cmm (130-400); Red Blood Count 4.93 10^6/uL (4.1-5.3); Red Cell Distribution Width 12.9 % (12.1-15.1); White Blood Count 5.6 10^3/uL (4.0-10.0)
[2022-06-28 22:19] LABS: Troponin(5th) Baseline 10 ng/L (0-15)
[2022-06-28 22:21] LABS: Alanine Aminotransferase 11 U/L (0-41); Albumin Level 4.4 g/dL (3.5-5.2); Alkaline Phosphatase 92 U/L (40-130); Anion Gap 16.3 (5-19); Aspartate Amino Transferase 21 U/L (0-40); Blood Urea Nitrogen 13 mg/dL (8-23); Calcium 9.2 mg/dL (8.5-10.5); Carbon Dioxide 24 mmol/L (22-29); Chloride 95 mmol/L (98-107); Globulin 2.6 g/dL (1.3-4.6); Glucose 98 mg/dL (65-115); Osmolality Calculated 272 mOsm/kg (285-295); Potassium 4.3 mmol/L (3.5-5.1); Sodium 131 mmol/L (136-145); Total Bilirubin 0.5 mg/dL (0.15-1.2)
[2022-06-28] MEDS: sodium chloride 0.9% 1,000 ML 999 ML IV (22:39)
[2022-06-28 22:50] VITALS: BP 124/58; BP 131/64; BP 96/62; PULSE 56; PULSE 59
--- NOTE | 2022-06-28 22:50 | ECG_ITS ---
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 Measurements Intervals [place] Rate: 54 P: 56 [place]: 164 QRS: 73 QRSD: 93 T: 79 QT: 432 QTc: 410 Interpretive Statements SINUS BRADYCARDIA POSSIBLE ANTERIOR MYOCARDIAL INFARCTION , OF INDETERMINATE AGE [30 ms Q WAVE IN V3/V4, OR R < 0.2 mV IN V4] Compared to ECG 08/30/2019 11:23:54 Sinus rhythm no longer present Myocardial infarct finding still present Electronically Signed On 06-30-2022 0:10:25 WATCH REPAIR PERSON by Laura Guo M.D. [id number]
[2022-06-28] MEDS: meclizine 25 mg tablet PO (22:59)
[2022-06-29 00:29] LABS: Adenovirus Not Detected (NOT DETECT); Chlamydia Pneumoniae Not Detected (NOT DETECT); Coronavirus 229E,HKU1,NL63,OC4 Not Detected (NOT DETECT); Human Metapneumovirus Not Detected (NOT DETECT); Human Rhinovirus/Enterovirus Not Detected (NOT DETECT); Influenza A Not Detected (NOT DETECT); Influenza A H1 Not Detected (NOT DETECT); Influenza A H1-2009 Not Detected (NOT DETECT); Influenza A H3 Not Detected (NOT DETECT); Influenza B Not Detected (NOT DETECT); Mycoplasma Pneumoniae Not Detected (NOT DETECT); Parainfluenza Virus Type 1 Not Detected (NOT DETECT); Parainfluenza Virus Type 2 Not Detected (NOT DETECT); Parainfluenza Virus Type 3 Not Detected (NOT DETECT); Parainfluenza Virus Type 4 Not Detected (NOT DETECT); Respiratory Syncytial Virus A Not Detected (NOT DETECT); Respiratory Syncytial Virus B Not Detected (NOT DETECT); SARS-COV-2 Detected (NOT DETECT)
[2022-06-29 00:45] LABS: Troponin 5 2HR 7.22 ng/L (0-15)
[2022-06-29 00:47] LABS: Troponin 5 2HR Delta -2.78 ABS# (0-10)
[2022-06-29 00:59] VITALS: PULSE 60; RESP 16; O2SAT 95
== END 2022-06-29 01:00 | disposition home or self-care (01) ==
PROVIDERS: Emergency Medicine; Emergency Provider Emergency Medicine; PCP Nurse Practitioner
DX: E86.0 Dehydration (principal); U07.1 COVID-19; R42 Dizziness and giddiness; J44.9 Chronic obstructive pulmonary disease, unspecified; I10 Essential (primary) hypertension; Z87.891 Personal history of nicotine dependence
CPT/HCPCS: 70450; 71045; 80053; 84484; 85025; 87635; 93005; 96360; 99285; J7030; J8597

== ENCOUNTER → 2022-07-28 14:32 | Outpatient (BNVA) | payer OTHER, SELFPAY | PROVIDERS: PCP Nurse Practitioner; Visit Provider Internal Medicine Cardiovascular Disease | DX: I25.10 Atherosclerotic heart disease of native coronary artery without angina pectoris (principal); I73.9 Peripheral vascular disease, unspecified; I10 Essential (primary) hypertension; E78.2 Mixed hyperlipidemia; J44.9 Chronic obstructive pulmonary disease, unspecified; I71.40 Abdominal aortic aneurysm, without rupture, unspecified; Z87.891 Personal history of nicotine dependence | CPT/HCPCS: 99214 ==

== ENCOUNTER 2022-09-29 13:11 | Outpatient (CLI) | payer OTHER, SELFPAY ==
--- NOTE | 2022-09-29 14:15 | USCV_ITS ---
Godwin Solorio Age: 76 Gender: M : 1945 Exam Date: 09/29/2022 13:50 Ordering Phys: Phoenix Donnelly MD (Andy) ([email or web address]) Technologist: CT Exam Location: [facility] [place] Indication: hx of occlusion-rt iliac HISTORY: Diameter (cm) AP x Transverse x Length Velocity (cm/s) Waveform Prox Aorta: 2.19 x 2.26 x 71.10 Triphasic Mid Aorta: 1.86 x 1.92 x 68.60 Triphasic Distal Aorta: 1.40 x 1.45 x 72.70 Triphasic Right Iliac Prox: 1.36 x 1.00 x Left Iliac Prox: 1.19 x 1.00 x 181.60 Triphasic Stent Prox Landing x x Aneurysmal Sac Max x x Lt Lat Sac Dim Rt Lat Sac Dim Stent Dist Landing x x Right Iliac Stent x x Left Iliac Stent x x Right Renal Art Left Renal Art FINDINGS: Comparison:. 11/18/21. Ectatic abdominal aorta with evidence of atherosclerotic plaque noted. No evidence of abdominal aortic aneurysm. Known occluded right iliac artery. Normal caliber left iliac artery. CONCLUSIONS Ectatic abdominal aorta with evidence of atherosclerotic plaque noted. No AAA. Dr. Marii Barillas DO (Electronically Signed) Final Date: 29 September 2022 15:20 S
== END 2022-09-29 13:12 | disposition home or self-care (01) ==
LOC: RAD 13:16
PROVIDERS: PCP Nurse Practitioner; Visit Provider Thoracic Surgery (Cardiothoracic Vascular Surgery)
DX: I77.811 Abdominal aortic ectasia (principal)
CPT/HCPCS: 93978

== ENCOUNTER → 2022-12-10 14:22 | Outpatient (BNVA) | payer OTHER, SELFPAY | PROVIDERS: PCP Nurse Practitioner; Visit Provider Urology | DX: N40.1 Benign prostatic hyperplasia with lower urinary tract symptoms (principal) | CPT/HCPCS: 51741; 51798; 81003; 99213 ==

== ENCOUNTER 2022-12-25 07:44 | Outpatient (CLI) | payer OTHER, SELFPAY ==
--- NOTE | 2022-12-25 08:03 | CT_ITS ---
WS: [id number] CT chest w con* [id number] HISTORY: 6 MONTH FOLLOW UP TECHNIQUE: Axial imaging performed through the thorax. Coronal and sagittal reformats are submitted. All CT scans at [facility] use at least one of these dose optimization techniques: automated exposure control; mA and/or kV adjustment per patient size (includes targeted exams where dose is mat ched to clinical indication); or iterative reconstruction. CONTRAST: Omnipaque 350; 100 mL IV. DLP: 203.39 mGy.cm COMPARISON: 10/30/2021 Lungs and central airway: No interval change of the 6 mm noncalcified nodule RIGHT lower lobe adjacen t to the fissure. Additional mild dependent changes or atelectasis at the lung bases. There are a few benign granulomata. No pneumonia. Pleura: Normal. No pleural effusion. Heart and pericardium: Normal size heart with no pericardial effusion. Mediastinum and kamila: No mediastinum or hilar adenopathy. Vessels: Mild atherosclerosis aorta. No aneurysm. Normal size pulmonary artery. Chest wall and lower neck: No soft tissue masses. Upper abdomen: Small hiatal hernia. Normal appearance the gallbladder. Normal liver. Normal size sple en with granulomata. No adrenal mass. Osseous structures: No destructive process. CT/CT chest w con* [id number] IMPRESSION: 1. No change in the noncalcified RIGHT lower lobe 6 mm pulmonary nodule since 10/30/2021. Recommend one additional [address] follow-up to document long-term stability. 2. No adenopathy.
[2022-12-25] MEDS: iohexol 350 mg/mL 500 mL Btl (per mL) IV (08:11)
[2022-12-25 08:45] LABS: Blood Urea Nitrogen 13 mg/dL (8-23)
== END 2022-12-25 07:45 | disposition home or self-care (01) ==
LOC: RAD 07:46
PROVIDERS: PCP Nurse Practitioner; Visit Provider Nurse Practitioner
DX: Z01.89 Encounter for other specified special examinations (principal); R91.1 Solitary pulmonary nodule
CPT/HCPCS: 71260; 82565; 84520; Q9967

== ENCOUNTER 2022-12-28 20:08 | Emergency (ER) | payer OTHER, SELFPAY ==
[2022-12-28 20:12] VITALS: BMI 21.9
[2022-12-28 20:14] VITALS: BP 108/68; PULSE 72; RESP 16; TEMP 36.9; O2SAT 94
--- NOTE | 2022-12-28 20:17 | ED_ITS ---
HPI - Nausea/Vomiting/Diarrhea General: Chief complaint: Nausea/Vomiting/Diarrhea Stated complaint: N/V Time Seen by Provider: 12/28/22 20:17 History of Present Illness: Mr. Solorio is a 77-year-old gentleman with history of COPD, hypertension, hyperlipidemia, CAD presenting to the emergency department for nausea and vomiting. He reports being at his baseline health earlier today, he had dinner and approximately 30 minutes later had sudden onset of chills, some left arm pain, substernal chest pain, right leg pain, nausea and abdominal pain. He subsequently vomited which has improved the abdominal pain. Intensity of symptoms moderate. Course has persisted. No other specific changes in health, exacerbating, or alleviating factors identified. Onset (ago): minute(s) Description of vomiting: food contents Associated nausea: Yes Associated abdominal pain: Yes Pain consistency: now resolved Severity: moderate Quality: cramping and aching Relieving factors: vomiting Associated symtoms: Reports nausea Review of Systems General: Reports: 10 or more systems reviewed and unremarkable except in HPI and below GI: Reports: nausea PFSH ED PFSH: Medical History AAA (abdominal aortic aneurysm) COPD (chronic obstructive pulmonary disease) Depression Hearing loss Hyperlipidemia Hypertension Migraine PAD (peripheral artery disease) Peripheral vascular disease PTSD (post-traumatic stress disorder) Surgical History History of back surgery Status post femorofemoral bypass surgery Status post insertion of iliac artery stent Family History Father , Age 67 Lung disease Emphysema Diabetes Mother , Age 80 Parkinson's disease Social History Smoking and tobacco status: former smoker Alcohol intake: former Substance/Drug Use: never Marital status: Current occupational status: retired Physical Exam Const: COMMON NORMALS: alert GENERAL APPEARANCE: cooperative and well developed HENMT: COMMON NORMALS: normocephalic, atraumatic and TM's normal bilaterally HEAD & SCALP: normocephalic and atraumatic TYMPANIC MEMBRANE: TM's normal bilaterally THROAT: posterior oropharynx normal Eye: COMMON NORMALS: conjunctivae normal CONJUNCTIVA: Yes conjunctivae normal SCLERA: sclerae normal Neck/C-Spine: COMMON NORMALS: supple GENERAL: Yes trachea midline Resp: COMMON NORMALS: clear to auscultation bilaterally EFFORT & INSPECTION : Yes able to speak in complete sentences AUSCULTATION: clear to auscultation bilaterally Cardio: COMMON NORMALS: regular rate and regular rhythm RATE: regular rate RHYTHM: regular rhythm GI: COMMON NORMALS: Soft to palpation PALPATION: Yes Soft to palpation and No Tenderness to palpation present (GI) Extremity: GENERAL: Yes normal exam except as noted and No edema Neuro: COMMON NORMALS: moves all extremities SENSORIUM/ORIENTATION: Yes alert and No Orientation impaired Psych: COMMON NORMALS: mental status grossly normal and Normal thought process present THOUGHT PROCESS: Normal thought process present Course Vital Signs: Vital signs: Vital Signs Temperature 98.4 F 12/28/22 20:14 Pulse Rate 70 12/28/22 23:17 Respiratory Rate 16 12/28/22 21:25 Blood Pressure 123/66 12/28/22 21:25 Pulse Oximetry 95 12/28/22 23:17 Oxygen Delivery Me thod Room Air 12/28/22 21:25 MDM - Nausea/Vomiting/Diarrhea Medical Decision Making 77-year-old gentleman presenting with sudden onset of chills with nausea and vomiting accompanied by mild chest discomfort. Mildly ill on clinical appearance however nontoxic. EKG demonstrates sinus rhythm with normal axis and intervals, no STEMI Labs notable for mild leukopenia otherwise unremarkable hematologic and metabolic panel. Negative initial and repeat troponin. No UTI. Rapid viral testing is negative. Chest x-ray with no lobar consolidation or pneumothorax. During ED course patient treated with aspirin initially and antiemetic. Feels i mproved on repeat. No continued chest pain. Etiology of symptoms may be related to viral syndrome though additional possible causes were discussed with patient. The results of ED evaluation were discussed with the patient including possible disposition options. I discussed risk stratification by heart score and estimated risk of major adverse cardiac events. The patient wishes to proceed with outpatient management. I discussed prescriptions and/or symptomatic cares (if applicable) including appropriate and responsible use, followup plan, and return precautions. The patient verbalized understanding and felt safe for discharge. Medical Records I reviewed the patient's medical records. Lab Data I reviewed the patient's lab results. 12/28/22 20:26 12/28/22 20:26 Radiology Impressions Chest X-Ray 12/28/22 22:35 IMPRESSION: No acute findings. Laboratory Results WBC 3.6 10^3/uL (4.0-10.0) L 12/28/22 20: RBC 4.56 10^6/uL (4.1-5.3) 12/28/22 20: Hgb 14.0 g/dL (11.7-16.6) 12/28/22 20: Hct 42.5 % (42.0-52.0) 12/28/22 20: MCV 93.2 fl (80-94) 12/28/22 20: MCH 30.7 pg (28.0-34.0) 12/28/22 20: MCHC 32.9 g/dL (30.0-36.0) 12/28/22 20: RDW 12.5 % (12.1-15.1) 12/28/22 20: Plt Count 168 10^3/cmm (130-400) 12/28/22 20: MPV 9.2 fL (7.4-10.4) 12/28/22 20: Neut % (Auto) 86.6 % 12/28/22 20: Lymph % (Auto) 7.8 % 12/28/22 20: Harper % (Auto) 0.8 % 12/28/22 20: Eos % (Auto) 3.1 % 12/28/22 20: Baso % (Auto) 0.6 % 12/28/22: Neut # (Auto) 3.10 10^3/uL (1.8-7.7) 12/28/22 20: Lymph # (Auto) 0.3 10^3/uL (0.8-4.8) L 12/28/22 20: Harper # (Auto) 0.0 10^3/uL (0.2-0.9) L 12/28/22 20: Eos # (Auto) 0.1 10^3/uL (0.0-0.8) 12/28/22 20: Baso # (Auto) 0.0 10^3/uL (0.0-0.1) 12/28/22 20: Nucleated RBC % (auto) 0 % 12/28/22 20:26 Nucleated RBCs # 0.0 /100WBC 12/28/22 20:26 Sodium 140 mmol/L (136-145) 12/28/22 20:26 Potassium 3.8 mmol/L (3.5-5.1) 12/28/22 20:26 Chloride 107 mmol/L (98-107) 12/28/22 20:26 Carbon Dioxide 22 mmol/L (22-29) 12/28/22 20:26 Anion Gap 14.8 (5-19) 12/28/22 20:26 BUN 20 mg/dL (8-23) 12/28/22 20: Creatinine 1.1 mg/dL (0.7-1.2) 12/28/22 20:26 GFR Calculation Not Reportable 12/28/22 20: Glucose 111 mg/dL (65-115) 12/28/22 20:26 Calculated Osmolality 293 mOsm/kg (285-295) 12/28/22 20:26 Calcium 8.7 mg/dL (8.5-10.5) 12/28/22 20:26 Total Bilirubin 0.4 mg/dL (0.15-1.2) 12/28/22 20:26 AST 21 U/L (0-40) 12/28/22 20:26 ALT 12 U/L (0-41) 12/28/22 20:26 Alkaline Phosphatase 83 U/L (40-130) 12/28/22 20:26 Troponin T Baseline 9 ng/L (0-15) 12/28/22 20:26 Troponin T 120 Minute 14.77 ng/L (0-15) 12/28/22 22:05 Delta Troponin T 5.77 ABS# (0-10) 12/28/22 22:05 Total Protein 6.5 g/dL (6.6-8.7) L 12/28/22 20:26 Albumin 3.9 g/dL (3.5-5.2) 12/28/22 20: Globulin 2.6 g/dL (1.3-4.6) 12/28/22 20:26 Lipase 28 U/L (13-60) 12/28/22 20:26 Urine Color Yellow (Yellow) 12/28/22 21:30 Urine Appearance Clear (CLEAR) 12/28/22 21:30 Urine pH 5 (5-7) 12/28/22 21:30 Ur Specific [place] 1.015 (1.005-1.030) 12/28/22 21:30 Urine Protein Neg (Negative) 12/28/22 21:30 Urine Glucose (UA) Norm (Normal) 12/28/22 21:30 Urine Ketones Negative (Negative) 12/28/22 21:30 Urine Blood Neg (Negative) 12/28/22 21:30 Urine Nitrate Negative (Negative) 12/28/22 21:30 Urine Bilirubin Neg (Negative) 12/28/22 21:30 Urine Urobilinogen Norm mg/dL (Negative) 12/28/22 21:30 Ur Leukocyte Esterase Negative (Negative) 12/28/22 21:30 Influenza Type A Ag negative (Negative) 12/28/22 21:30 Influenza Type B Ag negative (Negative) 12/28/22 21:30 SARS-CoV-2 Ag (Rapid) negative (Negative) 12/28/22 21:30 Discharge Plan Discharge Patient Disposition: Home Clinical Impression: Nausea and vomiting, Abdominal pain, Chest pain Condition: Stable Prescriptions: New ondansetron 4 mg tablet,disintegrating 4 mg PO Q8H PRN (Reason: nausea and vomiting) Qty: 15 0RF No Action aspirin 81 mg tablet,delayed release (DR/EC) 81 mg PO DAILY Qty: 30 0RF fluoxetine 10 mg tablet 20 mg PO DAILY rosuvastatin 5 mg tablet 5 mg PO DAILY Qty: 30 5RF cholecalciferol (vitamin D3) 50 mcg (2,000 unit) capsule 50 mcg PO DAILY (DME) custom molded accommodative orthotic See Rx Instructions .Route .MEDSUPPLY Qty: 1 0RF Rx Instructions: by [facility] ([facility]) custom molded accommodative orthotics L code 3030. See Rx Instructions .Route .MEDSUPPLY Qty: 1 0RF Rx Instructions: As directed tamsulosin 0.4 mg capsule 0.4 mg PO BID PRN clopidogrel 75 mg tablet 75 mg PO DAILY Qty: 90 3RF ranolazine [Ranexa] 500 mg tablet extended release 12 hr 500 mg PO BID Qty: 60 4RF Discharge Orders: Discharge ED (Routine); Ordered 12/28/22 Ordered By: Dajuan Fatima Referrals: Hutson,Miryam R, DRESSMAKER HELPER [Primary Care Provider] - Discharge Diet: Advance as tolerated and Clear Liquid Discharge Activity: Increase activity as tolerated Patient Instructions: Chest Pain (ED), Acute Nausea and Vomiting (ED), Abdominal Pain (ED) Activity Restrictions/Additional Instructions: Thank you for visiting the emergency department. You are seen evaluated for nausea, vomiting, abdominal pain and chest pain. The exact cause of your symptoms is unclear however may be related to viral syndrome as discussed. Additional causes as discussed could be cardiac in nature. Please follow-up with your primary care provider and retail parts professional. Return to the emergency department for chest pain, recurrent symptoms, or anything else that you are concerned about and feel needs emergency room evaluation. Coding Level of Care Code ED Health Care Marketing Manager for Mariah Bone
--- NOTE | 2022-12-28 20:33 | ECG_ITS ---
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 Measurements Intervals [place] Rate: 70 P: 47 CO: 141 QRS: 69 QRSD: 93 T: 86 QT: 371 QTc: 402 Interpretive Statements SINUS RHYTHM NONSPECIFIC T-WAVE ABNORMALITY Compared to ECG 06/28/2022 22:44:16 T-wave abnormality now present Sinus bradycardia no longer present Myocardial infarct finding no longer present Electronically Signed On 12-29-2022 8:22:21 CDT by Seda Fonseca M.D. [email or web address]/[id number] f
[2022-12-28 20:42] LABS: Basophils % 0.6 %; Eosinophils # 0.1 10^3/uL (0.0-0.8); Eosinophils % 3.1 %; Hematocrit 42.5 % (42.0-52.0); Lymphocytes # 0.3 10^3/uL (0.8-4.8); Lymphocytes % 7.8 %; Mean Corpuscular HGB Conc 32.9 g/dL (30.0-36.0); Mean Corpuscular Hemoglobin 30.7 pg (28.0-34.0); Mean Corpuscular Volume 93.2 fl (80-94); Mean Platelet Volume 9.2 fL (7.4-10.4); Monocytes % 0.8 %; Neutrophils % 86.6 %; Nucleated Red Blood Cells % 0 %; Platelet Count 168 10^3/cmm (130-400); Red Blood Count 4.56 10^6/uL (4.1-5.3); Red Cell Distribution Width 12.5 % (12.1-15.1); White Blood Count 3.6 10^3/uL (4.0-10.0)
[2022-12-28 21:22] LABS: Alanine Aminotransferase 12 U/L (0-41); Albumin Level 3.9 g/dL (3.5-5.2); Alkaline Phosphatase 83 U/L (40-130); Anion Gap 14.8 (5-19); Aspartate Amino Transferase 21 U/L (0-40); Blood Urea Nitrogen 20 mg/dL (8-23); Calcium 8.7 mg/dL (8.5-10.5); Carbon Dioxide 22 mmol/L (22-29); Chloride 107 mmol/L (98-107); Globulin 2.6 g/dL (1.3-4.6); Glucose 111 mg/dL (65-115); Lipase 28 U/L (13-60); Osmolality Calculated 293 mOsm/kg (285-295); Potassium 3.8 mmol/L (3.5-5.1); Sodium 140 mmol/L (136-145); Total Bilirubin 0.4 mg/dL (0.15-1.2); Total Protein 6.5 g/dL (6.6-8.7)
[2022-12-28] MEDS: ondansetron 2 mg/ML SDV 2 mL 4 MG IVP (21:23)
[2022-12-28 21:25] VITALS: BP 123/66; PULSE 83; RESP 16; O2SAT 90
[2022-12-28 21:42] LABS: Add Urine Microscopic? NO; Charge for UA Resulting for Rev
[2022-12-28 21:43] LABS: Troponin(5th) Baseline 9 ng/L (0-15)
[2022-12-28 21:45] LABS: Bilirubin Urine Neg (Negative); Blood Urine Neg (Negative); Glucose Urine UA Norm (Normal); Ketones Urine Negative (Negative); Leukocyte Esterase Urine Negative (Negative); Nitrate Urine Negative (Negative); Protein Urine Neg (Negative); Specific Gravity, Urine 1.015 (1.005-1.030); Urine Appearance Clear (CLEAR); Urine Color Yellow (Yellow); Urobilinogen Urine Norm (Negative); pH Urine 5 (5-7)
[2022-12-28 21:59] LABS: Influenza A by IFA negative (Negative); Influenza B by IFA negative (Negative); SARS Covid-2 Antigen negative (Negative)
[2022-12-28 22:28] LABS: Troponin 5 2HR 14.77 ng/L (0-15)
--- NOTE | 2022-12-28 22:33 | ECG_ITS ---
[facility] Test Date: 2022-12-28 Pat Name: Godwin Solorio Department: Room: Gender: Male Training And Development Professional: : 1945 Requested By: Dajuan Fatima Order Number: [id number] Bauer MD: Dirk Wallis M.D. Measurements Intervals [place] Rate: 86 P: 73 DE: 157 QRS: 73 QRSD: 88 T: 78 QT: 351 QTc: 420 Interpretive Statements SINUS RHYTHM NONSPECIFIC T-WAVE ABNORMALITY Compared to ECG 06/28/2022 22:44:16 T-wave abnormality now present Sinus bradycardia no longer present Myocardial infarct finding no longer present Electronically Signed On 12-28-2022 23:39:57 CDT by Dirk Wallis M.D. [email or web address] hospitalExactTargettr[facility].[employer]/store/OM/[id number]
[2022-12-28 22:34] LABS: Troponin 5 2HR Delta 5.77 ABS# (0-10)
--- NOTE | 2022-12-28 22:35 | XRR_ITS ---
PROCEDURE INFORMATION: Exam: XR Chest Exam date and time: 12/28/2022 9:41 PM Age: 77 years old Clinical indication: Pain; Chest pressure; Prior surgery; Surgery date: 6+ months; Surgery type: Cabg stents; Additional info: Cp TECHNIQUE: Imaging protocol: Radiologic exam of the chest. Views: 1 view. COMPARISON: CT chest w con* [id number] 12/25/2022 8:45 AM FINDINGS: Lungs: Unremarkable. No consolidation. Pleural spaces: Unremarkable. No pleural effusion. No pneumothorax. Heart/Mediastinum: Unremarkable. No cardiomegaly. Bones/joints: Unremarkable. XR/XR chest 1V portable [id number] IMPRESSION: No acute findings.
[2022-12-28] MEDS: aspirin 81 mg Chew Tablet 324 MG PO (22:59)
[2022-12-28 23:17] VITALS: PULSE 70; O2SAT 95
== END 2022-12-28 23:18 | disposition home or self-care (01) ==
PROVIDERS: Emergency Provider Emergency Medicine; PCP Nurse Practitioner
DX: R11.2 Nausea with vomiting, unspecified (principal); R10.9 Unspecified abdominal pain; R07.9 Chest pain, unspecified; Z79.82 Long term (current) use of aspirin; Z79.02 Long term (current) use of antithrombotics/antiplatelets; Z20.822 Contact with and (suspected) exposure to COVID-19; E78.5 Hyperlipidemia, unspecified; I10 Essential (primary) hypertension; Z87.891 Personal history of nicotine dependence
CPT/HCPCS: 36415; 71045; 80053; 81003; 83690; 84484; 85025; 87426; 87804; 93005; 96374; 99285; J2405

== ENCOUNTER → 2023-01-26 13:31 | Outpatient (BNVA) | payer OTHER, SELFPAY | PROVIDERS: PCP Nurse Practitioner; Visit Provider Internal Medicine Cardiovascular Disease | DX: I25.10 Atherosclerotic heart disease of native coronary artery without angina pectoris (principal); I73.9 Peripheral vascular disease, unspecified; I10 Essential (primary) hypertension; E78.2 Mixed hyperlipidemia; J44.9 Chronic obstructive pulmonary disease, unspecified; I71.40 Abdominal aortic aneurysm, without rupture, unspecified; Z87.891 Personal history of nicotine dependence; Z79.82 Long term (current) use of aspirin | CPT/HCPCS: 99214 ==

== ENCOUNTER → 2023-02-08 12:55 | Outpatient (BNVA) | payer OTHER, SELFPAY | PROVIDERS: PCP Nurse Practitioner; Referring Provider Nurse Practitioner; Visit Provider Nurse Practitioner Family | DX: D22.39 Melanocytic nevi of other parts of face (principal) | CPT/HCPCS: 11102; 17000; 17003; 99204 ==

== ENCOUNTER → 2023-05-31 15:24 | Outpatient (BNVA) | payer OTHER, SELFPAY | PROVIDERS: PCP Nurse Practitioner; Visit Provider Nurse Practitioner Family | DX: L21.8 Other seborrheic dermatitis (principal); L81.4 Other melanin hyperpigmentation; D22.5 Melanocytic nevi of trunk; L85.3 Xerosis cutis | CPT/HCPCS: 11102; 99214 ==

== ENCOUNTER → 2023-06-30 08:42 | Outpatient (BNVA) | payer OTHER, SELFPAY | PROVIDERS: PCP Nurse Practitioner; Visit Provider Dermatology | DX: D48.5 Neoplasm of uncertain behavior of skin (principal) | CPT/HCPCS: 11402; 12032 ==

== ENCOUNTER → 2024-01-18 07:55 | Outpatient (CLI) | payer OTHER, SELFPAY ==
--- NOTE | 2024-01-18 07:56 | CT_ITS ---
WS: [id number] CT chest w con* [id number] HISTORY: NONCALCIFIED RIGHT LOWER LOBE 6MM PULMONARY NODULE ANNUAL TECHNIQUE: Axial imaging performed through the thorax. Coronal and sagittal reformats are submitted. All CT scans at [facility] use at least one of these dose optimization techniques: automated exposure control; mA and/or kV adjustment per patient size (includes targeted exams where dose is mat ched to clinical indication); or iterative reconstruction. CONTRAST: Omnipaque 350; 100 mL IV. DLP: 325.16 mGy.cm COMPARISON: 12/25/2022, 10/30/2021 Lungs and central airway: Previously described 6 mm nodule in the anterior RIGHT lower lobe is reiden tified but is become subsolid. Bilateral chronic areas of atelectasis at the lung bases. Benign granu lomata LEFT lower lobe. No consolidation or mass. Pleura: Normal. No pleural effusion. Heart and pericardium: Normal size heart with no pericardial effusion. Mediastinum and kamila: No mediastinum or hilar adenopathy. Vessels: Mild atherosclerosis thoracic aorta. Normal size pulmonary artery. Chest wall and lower neck: No soft tissue masses. Upper abdomen: Too small to characterize hypodensities scattered throughout the liver are reidentifie d. Normal portal vein. No adrenal mass. Osseous structures: No destructive process. CT/CT chest w con* [id number] IMPRESSION: 1. Previously described 6 mm nodule in the RIGHT lower lobe has decreased in c onsolidation and is now subsolid. No additional work-up necessary. 2. Chronic emphysema. 3. No new mass or nodule. 4. Mild atherosclerosis aorta.
[2024-01-18 08:41] LABS: Blood Urea Nitrogen 16 mg/dL (8-23)
[2024-01-18] MEDS: iohexol 350 mg/mL 500 mL Btl (per mL) IV (09:18)
== END | disposition home or self-care (01) ==
LOC: RAD 07:54
PROVIDERS: Radiology Neuroradiology; PCP Nurse Practitioner; Visit Provider Nurse Practitioner
DX: R91.1 Solitary pulmonary nodule (principal); J98.11 Atelectasis; J84.10 Pulmonary fibrosis, unspecified
CPT/HCPCS: 71260; 82565; 84520; Q9967

== ENCOUNTER → 2024-03-07 11:51 | Outpatient (BNVA) | payer OTHER, SELFPAY | PROVIDERS: PCP Nurse Practitioner; Visit Provider Internal Medicine Cardiovascular Disease | DX: I71.40 Abdominal aortic aneurysm, without rupture, unspecified (principal); I10 Essential (primary) hypertension; Z95.828 Presence of other vascular implants and grafts; I73.9 Peripheral vascular disease, unspecified; I25.119 Atherosclerotic heart disease of native coronary artery with unspecified angina pectoris; J44.9 Chronic obstructive pulmonary disease, unspecified; Z95.5 Presence of coronary angioplasty implant and graft; Z87.891 Personal history of nicotine dependence | CPT/HCPCS: 99214 ==

== ENCOUNTER 2025-01-15 11:18 | Emergency (ER) | payer OTHER, MEDICARE, SELFPAY ==
[2025-01-15 11:21] VITALS: BP 161/86; PULSE 57; RESP 20; TEMP 36.7; O2SAT 95; BMI 29.9
--- NOTE | 2025-01-15 11:26 | XRR_ITS ---
PROCEDURE INFORMATION: Exam: XR Chest Exam date and time: 01/15/2025 11:36 AM Age: 79 years old Clinical indication: Pain; Chest pressure; Additional info: Cp TECHNIQUE: Imaging protocol: Radiologic exam of the chest. Views: 1 view. COMPARISON: 1. CT chest w con* [id number] 01/18/2024 9:11 AM 2. CR XR chest 1V portable [id number] 12/28/2022 9:41 PM FINDINGS: Lungs: Stable left lower lobe scarring. No acute pulmonary pathology. Pleural spaces: No pleural effusion. Heart/Mediastinum: Cardiomediastinal contours within normal limits. Bones/joints: Mild degenerative change present in the spine. XR/XR chest 1V portable [id number] IMPRESSION: No acute pathology or significant interval change.
--- NOTE | 2025-01-15 11:26 | ECG_ITS ---
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 Measurements Intervals [place] Rate: 56 P: 56 CA: 177 QRS: 60 QRSD: 92 T: 102 QT: 409 QTc: 397 Interpretive Statements SINUS BRADYCARDIA SEPTAL MYOCARDIAL INFARCTION , OF INDETERMINATE AGE [40+ ms Q WAVE IN V1/V2] Compared to ECG 12/28/2022 22:36:58 Myocardial infarct finding now present Sinus rhythm no longer present T-wave abnormality no longer present Electronically Signed On 01-15-2025 21:57:05 CDT by Laura Guo M.D. [id number]
[2025-01-15 11:27] VITALS: BP 158/74
--- NOTE | 2025-01-15 11:27 | W.ED.CHESTPA ---
HPI - Chest Pain General: Chief Complaint: Chest Pain Stated Complaint: cp, sob Time Seen by Provider: 01/15/25 11:22 Source: patient and EMS Mode of arrival: EMS Limitations: no limitations History of Present Illness: 79-year-old male states has been having chest pain since last night. States been a pressure pain in the center of his chest going down his left arm. Does have a history of coronary artery disease. He states that he went to [place] clinic was having pain there he is now pain-free we did receive aspirin and route. He said some slight dyspnea denies any cough or fever. Associated symptoms: Reports dyspnea; Deny abdominal pain, fever(s), nausea or vomiting Related Data Home Medications ?Medication ?Instructions ?Recorded ?Confirmed cholecalciferol (vitamin D3) 50 50 mcg PO DAILY 01/22/21 03/07/24 mcg (2,000 unit) capsule tamsulosin 0.4 mg capsule 0.4 mg PO BID PRN 07/28/22 03/07/24 fluoxetine 10 mg tablet 40 mg PO DAILY 01/26/23 03/07/24 Previous Rx's ?Medication ?Instructions ?Recorded aspirin 81 mg tablet,delayed 81 mg PO DAILY #30 tabs 07/12/20 release clopidogrel 75 mg tablet 75 mg PO DAILY #90 tabs 01/13/22 rosuvastatin 5 mg tablet 5 mg PO DAILY #90 tabs 03/07/24 Allergies Allergy/AdvReac Type Severity Reaction Status Date / Time bee venom protein (honey bee) Allergy ALGY-Anaphy Verified 03/07/24 11:57 laxis morphine Allergy ADR-Nausea Verified 03/07/24 11:57 Review of Systems Const: Denies: fever(s), chills, body aches or change in appetite ENMT: Denies: throat pain or dental pain Card: Reports: chest pain Resp: Reports: dyspnea GI: Denies: abdominal pain, nausea, vomiting or diarrhea Musc: Denies: neck pain or back pain Skin/Breast: Denies: rash Neuro: Denies: headache(s) PFSH ED PFSH: Medical History PAD (peripheral artery disease) Hearing loss PTSD (post-traumatic stress disorder) Hyperlipidemia Migraine Hypertension Depression Peripheral vascular disease COPD (chronic obstructive pulmonary disease) AAA (abdominal aortic aneurysm) Surgical History (Updated 03/07/24 @ 12:48 by Mark Slade MD) Hx of heart artery stent Status post femorofemoral bypass surgery Status post insertion of iliac artery stent History of back surgery Family History Father , Age 67 Lung disease Emphysema Diabetes Mother , Age 80 Parkinson disease Social History Smoking and tobacco/nicotine status: former use of tobacco/nicotine Alcohol intake: former Substance/Drug Use: never Marital status: Current occupational status: retired Physical Exam Const: COMMON NORMALS: no acute distress, patient oriented x3 and healthy appearing HENMT: COMMON NORMALS: normocephalic and atraumatic HEAD & SCALP: normocephalic and atraumatic Eye: COMMON NORMALS: conjunctivae normal CONJUNCTIVA: Yes conjunctivae normal Neck/C-Spine: COMMON NORMALS: full ROM and supple Chest: COMMONS NORMALS: normal inspection of the chest Resp: COMMON NORMALS: normal respiratory effort, No retractions, No use of accessory muscles and clear to auscultation bilaterally AUSCULTATION: clear to auscultation bilaterally Cardio: COMMON NORMALS: regular rate, regular rhythm and No murmurs present (Cardio) RATE: regular rate RHYTHM: regular rhythm GI: COMMON NORMALS: Normal to inspection, nondistended, normoactive bowel sounds present, Soft to palpation, non-tender and no masses PALPATION: Yes Soft to palpation Extremity: COMMON NORMALS: normal to inspection and full ROM Neuro: COMMON NORMALS: patient oriented x3, moves all extremities and no focal motor deficits Psych: COMMON NORMALS: mental status grossly normal, Normal thought process present and cooperative THOUGHT PROCESS: Normal thought process present Skin: COMMON NORMALS: no rashes or lesions noted and no wounds GENERAL SKIN EXAM: no rashes or lesions noted Course Vital Signs: Vital signs: Vital Signs Temperature 98.0 F 01/15/25 11:21 Pulse Rate 51 L 01/15/25 14:01 Respiratory Rate 18 01/15/25 14:01 Blood Pressure 133/82 01/15/25 14:01 Pulse Oximetry 96 01/15/25 14:01 Oxygen Delivery Me thod Room Air 01/15/25 14:01 MDM - Chest Pain Medical Decision Making Patient presents here with chest pain he has been chest pain-free here initial repeat troponins are negative he is wanting to go home feel he is low risk for ACS we will discharge him to follow-up with cardiology he is return if worsening he understands agrees to plan. Medical Records I reviewed the patient's medical records. Lab Data I reviewed the patient's lab results. 01/15/25 11:52 01/15/25 11:52 Radiology Impressions Chest X-Ray 01/15/25 11:26 IMPRESSION: No acute pathology or significant interval change. Laboratory Results WBC 5.13 10^3/uL (3.29-11.43) 01/15/25 11:52 RBC 4.69 10^6/uL (3.85-5.65) 01/15/25 11:52 Hgb 14.30 g/dL (11.27-16.99) 01/15/25 11:52 Hct 43.3 % (37-53) 01/15/25 11:52 MCV 92.3 fl (82-101) 01/15/25 11:52 MCH 30.5 pg (27-33) 01/15/25 11:52 MCHC 33.0 g/dL (30-55) 01/15/25 11:52 RDW 12.7 % (12.1-15.1) 01/15/25 11:52 Plt Count 182 10^3/cmm (157-399) 01/15/25 11:52 MPV 9.3 fL (7.4-10.4) 01/15/25 11:52 Neut % (Auto) 64.0 % 01/15/25 11:52 Lymph % (Auto) 15.6 % 01/15/25 11:52 Josephine % (Auto) 9.6 % 01/15/25 11:52 Eos % (Auto) 8.8 % 01/15/25 11:52 Baso % (Auto) 0.6 % 01/15/25 11:52 Neut # (Auto) 3.29 10^3/uL (1.8-7.7) 01/15/25 11:52 Lymph # (Auto) 0.8 10^3/uL (0.8-4.8) 01/15/25 11:52 Josephine # (Auto) 0.5 10^3/uL (0.2-0.9) 01/15/25 11:52 Eos # (Auto) 0.5 10^3/uL (0.0-0.8) 01/15/25 11:52 Baso # (Auto) 0.0 10^3/uL (0.0-0.1) 01/15/25 11:52 Nucleated RBC % (auto) 0 % 01/15/25 11:52 Nucleated RBCs # 0.0 /100WBC 01/15/25 11:52 Sodium 137 mmol/L (136-145) 01/15/25 11:52 Potassium 4.6 mmol/L (3.5-5.1) 01/15/25 11:52 Chloride 102 mmol/L (98-107) 01/15/25 11:52 Carbon Dioxide 23 mmol/L (22-29) 01/15/25 11:52 Anion Gap 16.6 (5-19) 01/15/25 11:52 BUN 11 mg/dL (8-23) 01/15/25 11:52 Creatinine 1.0 mg/dL (0.7-1.2) 01/15/25 11:52 GFR Calculation Not Reportable 01/15/25 11:52 Glucose 101 mg/dL (65-115) 01/15/25 11:52 Calculated Osmolality 284 mOsm/kg (285-295) L 01/15/25 11:52 Calcium 9.5 mg/dL (8.5-10.5) 01/15/25 11:52 Total Bilirubin 0.4 mg/dL (0.15-1.2) 01/15/25 11:52 AST 22 U/L (0-40) 01/15/25 11:52 ALT 16 U/L (0-41) 01/15/25 11:52 Alkaline Phosphatase 106 U/L (40-130) 01/15/25 11:52 Troponin T Baseline 10 ng/L (0-15) 01/15/25 11:52 Troponin T 120 Minute 8.14 ng/L (0-15) 01/15/25 14:16 Delta Troponin T -1.86 ABS# (0-10) L 01/15/25 14:16 NT-Pro-B Natriuret Pep 241 pg/mL (0-450) 01/15/25 11:52 Total Protein 7.1 g/dL (6.6-8.7) 01/15/25 11:52 Albumin 4.2 g/dL (3.5-5.2) 01/15/25 11:52 Globulin 2.9 g/dL (1.3-4.6) 01/15/25 11:52 Lipase 41 U/L (13-60) 01/15/25 11:52 All radiology interpretation(s) finalized by discharge EKG Data EKG 1: I personally reviewed and interpreted this EKG as follows: EKG interpretation date: 01/15/25 EKG interpretation time: 11:26 Interpretation: sinus roc hr [address] or t wave abnormalities qrs 92 qtc 401 Discharge Plan Discharge Patient Disposition: Home Clinical Impression: Chest pain Condition: Stable Prescriptions: No Action aspirin 81 mg tablet,delayed release (DR/EC) 81 mg PO DAILY Qty: 30 0RF fluoxetine 10 mg tablet 40 mg PO DAILY cholecalciferol (vitamin D3) 50 mcg (2,000 unit) capsule 50 mcg PO DAILY tamsulosin 0.4 mg capsule 0.4 mg PO BID PRN rosuvastatin 5 mg tablet 5 mg PO DAILY Qty: 90 5RF clopidogrel 75 mg tablet 75 mg PO DAILY Qty: 90 3RF Discharge Orders: Discharge ED (Routine); Ordered 01/15/25 Ordered By: Americo Ritchie Referrals: Miryam Hutson FNP [Primary Care Provider, Nurse Practitioner] Discharge Diet: Advance as tolerated Discharge Activity: Resume usual activity Patient Instructions: Chest Pain (ED) Print Language: Amharic Coding Level of Care Code ED Hydroelectric Systems Technician for Mariah Bone
[2025-01-15 12:02] LABS: Basophils % 0.6 %; Eosinophils # 0.5 10^3/uL (0.0-0.8); Eosinophils % 8.8 %; Hematocrit 43.3 % (37-53); Lymphocytes # 0.8 10^3/uL (0.8-4.8); Lymphocytes % 15.6 %; Mean Corpuscular Hemoglobin 30.5 pg (27-33); Mean Corpuscular Volume 92.3 fl (82-101); Mean Platelet Volume 9.3 fL (7.4-10.4); Monocytes # 0.5 10^3/uL (0.2-0.9); Monocytes % 9.6 %; Neutrophils # 3.29 10^3/uL (1.8-7.7); Nucleated Red Blood Cells % 0 %; Platelet Count 182 10^3/cmm (157-399); Red Blood Count 4.69 10^6/uL (3.85-5.65); Red Cell Distribution Width 12.7 % (12.1-15.1); White Blood Count 5.13 10^3/uL (3.29-11.43)
[2025-01-15 12:15] VITALS: BP 136/76; PULSE 53; RESP 16
[2025-01-15 12:20] LABS: Troponin(5th) Baseline 10 ng/L (0-15)
[2025-01-15 12:38] LABS: Alanine Aminotransferase 16 U/L (0-41); Albumin Level 4.2 g/dL (3.5-5.2); Alkaline Phosphatase 106 U/L (40-130); Anion Gap 16.6 (5-19); Aspartate Amino Transferase 22 U/L (0-40); Blood Urea Nitrogen 11 mg/dL (8-23); Calcium 9.5 mg/dL (8.5-10.5); Carbon Dioxide 23 mmol/L (22-29); Chloride 102 mmol/L (98-107); Creatinine Clr Calc Pharmacy 53.8329; Globulin 2.9 g/dL (1.3-4.6); Glucose 101 mg/dL (65-115); Lipase 41 U/L (13-60); NT Pro B Type Natriuretic Pept 241 pg/mL (0-450); Osmolality Calculated 284 mOsm/kg (285-295); Potassium 4.6 mmol/L (3.5-5.1); Sodium 137 mmol/L (136-145); Total Bilirubin 0.4 mg/dL (0.15-1.2); Total Protein 7.1 g/dL (6.6-8.7)
--- NOTE | 2025-01-15 13:02 | PC.PHAR ---
[facility] 01/15/25 1pm
[2025-01-15 14:01] VITALS: BP 133/82; PULSE 51; RESP 18; O2SAT 96
--- NOTE | 2025-01-15 14:10 | ECG_ITS ---
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 Measurements Intervals [place] Rate: 51 P: 75 [place]: 163 QRS: 50 QRSD: 94 T: 92 QT: 444 QTc: 411 Interpretive Statements SINUS BRADYCARDIA WITH MARKED SINUS ARRHYTHMIA SEPTAL MYOCARDIAL INFARCTION , OF INDETERMINATE AGE [40+ ms Q WAVE IN V1/V2] Compared to ECG 01/15/2025 11:26:50 No significant changes Electronically Signed On 01-15-2025 22:04:21 CDT by Laura Guo M.D. [email or web address]/[id number]
[2025-01-15 14:40] LABS: Troponin 5 2HR 8.14 ng/L (0-15)
[2025-01-15 14:41] LABS: Troponin 5 2HR Delta -1.86 ABS# (0-10)
[2025-01-15 14:48] VITALS: BP 140/78; PULSE 53; O2SAT 98
--- NOTE | 2025-01-17 08:18 | DCPLANNER ---
Message sent to Cardiology for follow up-Patient presents here with chest pain he has been chest pain-free here initial repeat troponins are negative he is wanting to go home feel he is low risk for ACS we will discharge him to follow-up with cardiology he is return if worsening he understands agrees to plan.
== END 2025-01-15 14:49 | disposition home or self-care (01) ==
PROVIDERS: Emergency Provider Emergency Medicine; PCP Nurse Practitioner
DX: R07.9 Chest pain, unspecified (principal); Z79.82 Long term (current) use of aspirin; Z79.02 Long term (current) use of antithrombotics/antiplatelets; Z87.891 Personal history of nicotine dependence; J44.9 Chronic obstructive pulmonary disease, unspecified; E78.5 Hyperlipidemia, unspecified; I10 Essential (primary) hypertension
CPT/HCPCS: 36415; 71045; 80053; 83690; 83880; 84484; 85025; 93005; 99285

== ENCOUNTER → 2025-02-06 12:15 | Outpatient (BNVA) | payer OTHER, SELFPAY | PROVIDERS: PCP Nurse Practitioner; Visit Provider Nurse Practitioner Family | DX: I73.9 Peripheral vascular disease, unspecified (principal); Z09 Encounter for follow-up examination after completed treatment for conditions other than malignant neoplasm; J44.9 Chronic obstructive pulmonary disease, unspecified; Z79.02 Long term (current) use of antithrombotics/antiplatelets; Z95.5 Presence of coronary angioplasty implant and graft; Z87.891 Personal history of nicotine dependence; R06.02 Shortness of breath; R07.9 Chest pain, unspecified | CPT/HCPCS: 99214 ==

== ENCOUNTER 2025-02-21 08:04 | Outpatient (CLI) | payer OTHER, SELFPAY ==
--- NOTE | 2025-02-21 | ECG_ITS ---
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 The perfusion scan will be documented separately. DATA: Baseline heart rate was 55 beats per minute. Baseline blood pressure was 142/70 millimeters of mercury. Target heart rate was 142. Maximum heart rate achieved was 71. which was 50 % of the predicted target heart rate. Maximum blood pressure was 145/78 millimeters of mercury. The reason for ending the test was end of the protocol. The patient did not experience any symptoms. ELECTROCARDIOGRAM: BASELINE: Sinus bradycardia. Normal axis. Otherwise, no ST-T changes suggestive of ischemia noted. No arrhythmia noted. EXERCISE: After Lexiscan injection, no ST-T changes suggestive of ischemic noted. No arrhythmia noted. CONCLUSION: Please note due to baseline abnormality of the EKG specificity and sensitivity of the EKG portion of LexiScan MIBI stress test will be low 1. EKG not suggestive of ischemia 2. Lexiscan injection unremarkable. 3. Perfusion scan will be documented separately. Electronically Signed On 03-07-2025 19:52:45 CDT by STEPHY JOSUE [email or web address]
[2025-02-21 08:12] VITALS: BMI 29.2
--- NOTE | 2025-02-21 08:15 | NMCV_ITS ---
[facility] perf SPECT r/s* [id number] Godwin Solorio Age: 79 Gender: M : 1945 Exam Date: 02/21/2025 09:11 Ordering Phys: Palmira Snider NP Technologist: CHANTAL Dunbar Exam Location: [facility] Indications: CP STRESS TEST [facility] IMAGE PROTOCOL Rest/Stress 1 Lexiscan Day Radiopharmaceutical Dose (mCi) Administration Site Administered by Rest: Tc-99m 10.4 IV Kylie Carlos, CRM SYSTEM ADMINISTRATOR Sestamibi Stress:Tc-99m 32.4 IV Kylie Escuderogle, CRM SYSTEM ADMINISTRATOR Sestamibi Rest: 21-Feb-2025 60 Discovery 630 Stress: 21-Feb-2025 30 Discovery 630 0.4mg Lexiscan. Images obtained in supine and prone position. SPECT RESULTS Technical Quality: Good Raw Data Analysis: Normal Image Corrections: No attenuation or motion correction applied Summed Stress Score: 18 Summed Rest Score: 12 Summed Difference Score: 7 PERFUSION FINDINGS Large area of fixed perfusion defect noted in basal to distal anteroseptal and basal to distal inferior and inferoseptal wall surrounded by medium size area of moderate to severe reversibility in mid to distal anteroseptal region suggestive of ischemia and LAD territory. FUNCTIONAL RESULTS (calculated via Gated SPECT) Stress Image LV EF (%): 64 Stress EDV (mL):77 TID: 1.02 Stress ESV (mL):28 FUNCTIONAL FINDINGS: There is mid to distal anterior anteroseptal and inferior wall akinesis suggestive of old myocardial infarction IMPRESSIONS Large area of old myocardial infarction surrounded by medium size area of moderate to severe ischemia noted in anteroseptal inferior and inferoseptal wall, mostly ischemia seen in LAD territory and mid to distal anteroseptal region., It is suggestive of multivessel disease. Aleshia Ackerman MD (Electronically Signed) Final Date: 21 February 2025 16:49 S
[2025-02-21 09:51] VITALS: BP 138/72; PULSE 68
== END 2025-02-21 08:05 | disposition home or self-care (01) ==
LOC: CDL 08:06
PROVIDERS: PCP Nurse Practitioner; Visit Provider Nurse Practitioner Family
DX: R07.9 Chest pain, unspecified (principal); I25.2 Old myocardial infarction; R93.1 Abnormal findings on diagnostic imaging of heart and coronary circulation
CPT/HCPCS: 36415; 78452; 93017; 96374; A9500; J2785

== ENCOUNTER 2025-02-28 07:04 | Outpatient (CLI) | payer OTHER, MEDICARE, SELFPAY ==
[2025-02-28] VITALS (25 sets, daily range): BP systolic 87–144; BP diastolic 52–76; PULSE 53–65; RESP 11–59; TEMP 36.8–37.1; O2SAT 93–94; BMI 29.2
--- NOTE | 2025-02-28 07:30 | XACV_ITS ---
Exam Room: 2 Ht: 157 cm Wt: 73 kg BSA: 1.81 m2 Gender: Male : 1945 Any Known Allergies: Other Exam Priority: Routine Procedure(s): Procedure Description: Diagnostic procedure Procedure Description: PCI procedure Procedure Description: Drug Eluting Coronary Stent Procedure Description: PTCA Procedure Description: Miscellaneous Procedure Description: ACT Procedure Description: Coronary Angiography Diagnostic Cath Status: Elective Diagnostic Findings * Left Main has no significant disease. * Circumflex has moderate luminal irregularities. * Right Coronary Artery has chronic total occlusion. * Mid Left Anterior Descending: has prior stents that are almost totally occluded with filling of distal LAD via collaterals. * INDICATION: Chest pain/abnormal stress test. * Proximal Left Anterior Descending: obstructive 70% stenosis, PEYTON: 3 flow. * Coronary angiography shows right dominance. PCI Status: Elective PCI Indication: Other Interventional Findings * Mid Left Anterior Descendin% stenosis treated with a AB MINI TREK 1.50X8 RX BALLOON, AB TREK 2.50X15 RX BALLOON, MDT AVILA EUPHORA RX [id number] BALLOON, ALEJANDRINA Mccracken CHANG 2.5X30 EFFIE, and ALEJANDRINA GRAMAJO EUPHORA RX [id number] BALLOON. * Procedure detail: We engaged left main artery with XB 3.0 Guide catheter. We used pilot plant operator 50 wire supported by 1.5x8mm balloon to cross totally occluded stents. Predilation of stents serially with 1.5x8mm balloon, 2.5x15 mm balloon, 3.0x20mm NC balloon was performed. We then placed a 2.5x30mm EFFIE in mid to distal vessel. This was followed by placement of 3.5x34 mm EFFIE. These stents were post dilated with 3.5x20mm NC balloon at high pressure. Flow in diagonal artery got slow with some chest pain. Resolved with nitro gtt. Patient left the r&d lab technician in a stable condition. * Proximal Left Anterior Descendin% stenosis treated with a MDT R CHANG 3.5X34 EFFIE, and MDT NC EUPHORA RX 3.42E38KB BALLOON. Conclusions 1. Totally occluded mid LAD stents s/p successful revascularization with 2 stent. 2. Proximal Left Anterior Descending was treated with a Drug Eluting Stent, and Balloon. 3. Mid Left Anterior Descending was treated with a Balloon, Balloon, Balloon, Drug Eluting Stent, and Balloon. Recommendations * Dual antiplatelet therapy with aspirin and plavix. * High intensity statin therapy. * Outpatient cardiology follow up in 2 weeks. Interventional RX Recommendation: PCI w/o planned CABG Diagnostic RX Recommendation: PCI w/o planned CABG Anticoagulation: Heparin Pressures Phase:Rest AO : 107 / 71 ( 86 ) @ 10:27:00 AM 104 / 66 ( 82 ) @ 10:33:00 AM 110 / 71 ( 87 ) @ 10:42:00 AM 113 / 80 ( 95 ) @ 10:55:00 AM Clinical Evaluation EBL: 5mL-10mL Procedural Details Current Diagnosis : Chest Pain. Pre-Procedure Time Out. Identified patient by full name and date of as verbalized by the patient/guarantor. Does the consent match the physician's order: Yes. Accurate & Complete Informed Consent: Yes. Inpatient/Outpatient History & Physical on Chart: Yes. If H&P is completed, is and addenduem needed: No; If yes, is the addendum complete: N/A. Visualize and Verify Site with Patient/Guarantor: N/A. Relevant Radiology Images available: Yes. Pre-op teaching completed and patient verbalized understanding. The risks, benefits, and alternatives of sedation and/or procedure were discussed by physician. The patient agrees to continue. Procedure started. [facility] Clinical Fraility Score: 3: Managing Well. 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 Chest Pain Symptom Assessment: Typical Angina Symptoms. Current diagnosis: Chest Pain. PERRLA. Strong, equal hand director clinical data bilaterally. Lungs clear x 5 lobes. IV Site on Arrival: 20 gauge in the right anticubital. IV Fluids: 0.9% NaCl at KVO. 0 mL infused prior to r&d lab technician. Pre Procedural Pulses: bilateral dorsalis pedis was 1+. Pre Procedural Pulses: bilateral posterior tibial was 1+. Pre Procedural Pulses: bilateral radial was 3+. Oxygen started at 2liters/min via nasal canula. right groin was prepped with chloroprep then draped in the usual sterile fashion. right radial was prepped with chloroprep then draped in the usual sterile fashion. Baseline sample Acquired. HR: 61 BPM. Physician arrived. Physician scrubbed in. Immediate Pre-Procedure Time Out. Correct Patient: Yes; Correct Procedure: Yes; Correct Site: Yes; Correct Patient Position: Yes; Correct Supplies: Yes; Dried Flammable Prep: Yes; Blood Products Available: Yes;. Lidocaine 1% infiltrated to the right radial. Arterial access obtained. A 5 kuwaiti TIG catheter in over wire. Multiple views taken of left coronary artery. Catheter redirected to the RCA. Multiple views taken of right coronary artery. Catheter removed over the exchange wire. 6 kuwaiti XB 3 guide catheter was inserted over the wire. Runthrough guidewire was advanced through the guide catheter to lesion in the mid LAD. Ship Engineer 50 wire inserted and advanced to the LAD. Runthrough wire removed. 1.5x8mm Balloon inserted to lesion in the mid LAD. Inflation number : 1 A AB MINI TREK 1.50X8 RX BALLOON was prepped and advanced across the Mid LAD , then inflated to 8 BROOKE for 0:08 seconds. Inflation number: 2 The AB MINI TREK 1.50X8 RX BALLOON was reinflated across the Mid LAD, to 8 BROOKE for 0:08 seconds. Inflation number: 3 The AB MINI TREK 1.50X8 RX BALLOON was reinflated across the Mid LAD, to 8 BROOKE for 0:06 seconds. Balloon out. 2.5x15mm Balloon inserted to lesion in the mid LAD. Inflation number : 4 A AB TREK 2.50X15 RX BALLOON was prepped and advanced across the Mid LAD , then inflated to 8 BROOKE for 0:10 seconds. Inflation number: 5 The AB TREK 2.50X15 RX BALLOON was reinflated across the Mid LAD, to 8 BROOKE for 0:08 seconds. Inflation number: 6 The AB TREK 2.50X15 RX BALLOON was reinflated across the Mid LAD, to 10 BROOKE for 0:10 seconds. Balloon out. Runthrough guidewire was advanced through the guide catheter to lesion in the mid LAD. Runthrough wire removed. 1.5x8mm Balloon inserted to lesion in the mid LAD. Inflation number: 7 The AB MINI TREK 1.50X8 RX BALLOON was reinflated across the Mid LAD, to 10 BROOKE for 0:14 seconds. Inflation number: 8 The AB MINI TREK 1.50X8 RX BALLOON was reinflated across the Mid LAD, to 8 BROOKE for 0:08 seconds. Inflation number: 9 The AB MINI TREK 1.50X8 RX BALLOON was reinflated across the Mid LAD, to 10 BROOKE for 0:07 seconds. Balloon out. Runthrough guidewire was advanced through the guide catheter to lesion in the mid LAD. Ship Engineer wire removed. 2.5x15mm Balloon inserted to lesion in the mid LAD. Inflation number: 10 The AB TREK 2.50X15 RX BALLOON was reinflated across the Mid LAD, to 8 BROOKE for 0:09 seconds. Inflation number: 11 The AB TREK 2.50X15 RX BALLOON was reinflated across the Mid LAD, to 10 BROOKE for 0:09 seconds. Inflation number: 12 The AB TREK 2.50X15 RX BALLOON was reinflated across the Mid LAD, to 12 BROOKE for 0:08 seconds. Inflation number: 13 The AB TREK 2.50X15 RX BALLOON was reinflated across the Mid LAD, to 16 BROOKE for 0:11 seconds. Inflation number: 14 The AB TREK 2.50X15 RX BALLOON was reinflated across the Mid LAD, to 16 BROOKE for 0:09 seconds. Balloon out. Results checked. Inflation number : 15 A MDT NC EUPHORA RX 3.42D07EK BALLOON was prepped and advanced across the Mid LAD , then inflated to 16 BROOKE for 0:24 seconds. Inflation number: 16 The MDT NC EUPHORA RX 3.82Z44JI BALLOON was reinflated across the Mid LAD, to 16 BROOKE for 0:17 seconds. Inflation number: 17 The MDT NC EUPHORA RX 3.42X38ZP BALLOON was reinflated across the Mid LAD, to 16 BROOKE for 0:12 seconds. Balloon out. Results checked. Inflation Number : 18 A MDT R CHANG 2.5X30 EFFIE -Lot Number# _[id number] EXP: 05/09/2027 was prepped and advanced across the Mid LAD. The stent was deployed at 12 BROOKE for 0:19 seconds. Stent balloon out over wire. Patient's family updated. Stent inserted to lesion in the mid LAD. Intact stent out OTW. Guideliner inserted OTW and advanced to the LAD. Inflation Number : 1 A MDT R CHANG 3.5X34 EFFIE -Lot Number# _[id number] EXP: 01/10/2027 was prepped and advanced across the Prox LAD. The stent was deployed at 12 BROOKE for 0:20 seconds. Stent balloon out over wire. Guideliner removed. Inflation number : 19 A MDT NC EUPHORA RX 3.42X71KE BALLOON was prepped and advanced across the Mid LAD , then inflated to 12 BROOKE for 0:12 seconds. Inflation number: 20 The MDT NC EUPHORA RX 3.49O66LI BALLOON was reinflated across the Mid LAD, to 18 BROOKE for 0:16 seconds. Inflation number: 2 The MDT NC EUPHORA RX 3.92R81ZX BALLOON was reinflated across the Prox LAD, to 18 BROOKE for 0:16 seconds. Balloon out. ACT drawn. Results out of range high seconds. Therapeutic limits - pre-heparin administration 90-150 seconds and monitoring heparin during a vascular procedure >250 seconds. Results checked. Wire out. Runthrough guidewire was advanced through the guide catheter to lesion in the diaganol. Wire out. Runthrough guidewire was advanced through the guide catheter to lesion in the diaganol. Ship Engineer wire inserted and advanced to the diagonal. Ship Engineer wire removed. Supercross microcatheter inserted OTW. Supercross catheter and wire removed. Guide catheter out. ACT drawn. Results 298 seconds. Therapeutic limits - pre-heparin administration 90-150 seconds and monitoring heparin during a vascular procedure >250 seconds. Post Procedure: Pulses reassessed and unchanged. PERRLA. Strong, equal hand director clinical data bilaterally. No VTE prophylaxis required. Medication's Wasted: Lidocaine 1% = 10 mL. Medication's Wasted: Nitro = 49.6 mcg. Medication's Wasted: Other = Fentanyl 75mcg Versed 1 mg. Total IV fluids: 235 mL. Post-op diagnosis: Stent to LAD. Complications: None. Estimated blood loss: 5mL-10mL. Responsiveness - Normal response to verbal stimuli; alert and oriented, PERRLA. Airway - Unaffected, no intervention required; spontaneous ventilation. Circulation: W/N/L, pulses unchanged. Nausea/Vomiting: No. Vital chart was stopped. A TR Band was successful obtaining hemostatsis at the Right Radial artery insertion site. Procedure completed. Patient transferred by wheelchair to 1st floor. Access Site Site: Right Radial artery Sheath Size: 6 Fr Hemostasis Method: TR Band Hemostasis Success: Successful Procedure Medications Start: 9:16 AM Stop: 9:16 AM Medication: Versed 1 mg and Fentanyl 25 mcg Amount: 1 Route: I.V. Start: 9:22 AM Stop: 9:22 AM Medication: Versed Amount: 1 mg Route: I.V. Start: 9:24 AM Stop: 9:24 AM Medication: Nitrogylcerin Amount: 200 mcg Route: I.A. Start: 9:27 AM Stop: 9:27 AM Medication: Heparin Amount: 5000 units Route: I.V. Start: 9:31 AM Stop: 9:31 AM Medication: Heparin Amount: 2000 units Route: I.V. Start: 9:39 AM Stop: 9:39 AM Medication: 0.9% Saline Amount: 250 ml Route: I.V. bolus Start: 9:40 AM Stop: 9:40 AM Medication: Fentanyl Amount: 25 mcg Route: I.V. Start: 9:57 AM Stop: 9:57 AM Medication: Heparin Amount: 1000 units Route: I.V. Start: 10:05 AM Stop: 10:05 AM Medication: Fentanyl Amount: 25 mcg Route: I.V. Start: 10:14 AM Stop: 10:14 AM Medication: Fentanyl Amount: 25 mcg Route: I.V. Start: 10:17 AM Stop: 10:17 AM Medication: Nitrogylcerin Amount: 200 mcg Route: I.A. Start: 10:24 AM Stop: 10:24 AM Medication: Nitrogylcerin Amount: 10 mcg/min Route: I.V. drip Start: 10:25 AM Stop: 10:25 AM Medication: Versed 1 mg and Fentanyl 25 mcg Amount: 1 Route: I.V. Start: 10:30 AM Stop: 10:30 AM Medication: Heparin Amount: 1000 units Route: I.V. Start: 10:40 AM Stop: 10:40 AM Medication: Heparin Amount: 1000 units Route: I.V. Start: 10:50 AM Stop: 10:50 AM Medication: Plavix Amount: 300 mg Route: P.O. I, the attending physician, have reviewed and verified all procedure medications. Yes, all medications given per verbal order History/Risk Factors Hypertension: Yes Dyslipidemia: No Peripheral Arterial Disease (PAD): Yes Myocardial Infarction ([place]): No Obesity: No Renal Disease: No Tobacco Use: Former Prior Interventions PCI: Yes CABG: No Valve Surgery: No Date of PCI: 10/30/2020 Report Signatures Finalized by Dirk Wallis MD on 03/05/2025 12:01 AM
[2025-02-28 07:39] LABS: Hematocrit 43.7 % (37-53); Hemoglobin 14.60 g/dL (11.27-16.99); Mean Corpuscular HGB Conc 33.4 g/dL (30-55); Mean Corpuscular Hemoglobin 30.9 pg (27-33); Mean Corpuscular Volume 92.4 fl (82-101); Nucleated Red Blood Cells % 0 %; Platelet Count 188 10^3/cmm (157-399); Red Blood Count 4.73 10^6/uL (3.85-5.65); White Blood Count 4.77 10^3/uL (3.29-11.43)
[2025-02-28 07:54] LABS: Anion Gap 16.2 (5-19); Blood Urea Nitrogen 14 mg/dL (8-23); Calcium 9.0 mg/dL (8.5-10.5); Carbon Dioxide 24 mmol/L (22-29); Chloride 102 mmol/L (98-107); Glucose 90 mg/dL (65-115); Osmolality Calculated 286 mOsm/kg (285-295); Potassium 4.2 mmol/L (3.5-5.1); Sodium 138 mmol/L (136-145)
--- NOTE | 2025-02-28 09:06 | P.HPUD_ITS ---
Surgery/Procedure H&P Update DATE OF PROCEDURE: February 28, 2025 DATE H&P PERFORMED: 02/06/25 H&P UPDATE INFORMATION: I have reviewed H&P completed within last 30 days, I have examined patient prior to procedure and Changes to prior documentation as noted here CHANGES TO PREVIOUS DOCUMENTATION: Patient had stress test and is abnormal. Plan for coronary angiogram with possible PCI PREOP DIAGNOSIS: Chest pain/abnormal stress test PRIMARY INDICATION FOR PROCEDURE: Chest pain/abnormal stress test PLANNED PROCEDURE: Operation Date: 02/28/25 08:30 Proposed Procedures p Cardiac Catheterization - [facility] w/wo LV & Coros(Left) - Dirk Wallis M.D Possible percutaneous coronary intervention PATIENT REASSESSED PRIOR TO SEDATION, WITH NO CHANGE NOTED: Yes PHYSICAL EXAM: alert, oriented x 3, clear to auscultation bilaterally and regular rate & rhythm AIRWAY EVAL/ANESTHESIA PLAN: normal airway, ASA III, Local Anesthesia, Risks, benefits & alternatives of sedation and/or procedure discussed and Patient agrees to continue as planned ADDITIONAL INFORMATION: Moderate sedation
--- NOTE | 2025-02-28 10:54 | P.PCN_ITS ---
Procedure Note: Date of procedure: 02/28/25 Pre-procedure diagnosis: Chest pain/abnormal stress test Post-procedure diagnosis: other (Severe multivessel coronary artery disease) Procedure: Left main artery is patent. LAD has prior stents with total occlusion of the stents from mid to distal vessel. Status post successful revascularization with 2 stents. At end of procedure, there was slow flow in the diagonal artery with some chest discomfort. We will keep patient on nitro gtt. 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 Left circumflex artery has mild to moderate luminal irregularities. Dual antiplatelet therapy with aspirin and plavix High intensity statin therapy Performing Provider: Dirk Wallis Estimated blood loss (mL): 10 Condition: stable Disposition: floor Coding Level of Care Code Acute Code for Tylerg Fwmackenzie
--- NOTE | 2025-02-28 11:27 | PC.NURSE ---
patient arrived on unit at 1100 from slab miller operator.
--- NOTE | 2025-02-28 11:34 | PC.NURSE ---
Dr Wallis was called concerning patient's blood pressure, which was 87/52. Nurse wanted to ask if nitro could be turned down. Voicemail not set up. Nurse called laborer pullet farm and Dr Chacon advised that nurse could turn the nitro down to accommodate.
--- NOTE | 2025-02-28 13:18 | PC.PHAR ---
Pt is [facility]. Pt states no medication changes since he was here 01/15/25.
--- NOTE | 2025-02-28 13:33 | PC.NURSE ---
TR band removed at 1329. No hematoma noted.
[2025-03-01 00:32] VITALS: BP 123/57; PULSE 59; RESP 11; TEMP 37; O2SAT 95
[2025-03-01 02:06] LABS: Hematocrit 40.7 % (37-53); Hemoglobin 13.10 g/dL (11.27-16.99); Mean Corpuscular HGB Conc 32.2 g/dL (30-55); Mean Corpuscular Hemoglobin 30.1 pg (27-33); Mean Corpuscular Volume 93.6 fl (82-101); Nucleated Red Blood Cells % 0 %; Platelet Count 169 10^3/cmm (157-399); Red Blood Count 4.35 10^6/uL (3.85-5.65); White Blood Count 6.02 10^3/uL (3.29-11.43)
[2025-03-01 02:22] LABS: Anion Gap 16.1 (5-19); Blood Urea Nitrogen 12 mg/dL (8-23); Calcium 8.9 mg/dL (8.5-10.5); Carbon Dioxide 21 mmol/L (22-29); Chloride 101 mmol/L (98-107); Creatinine Clr Calc Pharmacy 48.3710; Glucose 83 mg/dL (65-115); Osmolality Calculated 277 mOsm/kg (285-295); Potassium 4.1 mmol/L (3.5-5.1); Sodium 134 mmol/L (136-145)
[2025-03-01 04:48] VITALS: BP 131/65; PULSE 62; RESP 18; TEMP 37; O2SAT 95
[2025-03-01 05:40] VITALS: PULSE 58
[2025-03-01 08:56] VITALS: BP 141/71; PULSE 61; RESP 16; TEMP 36.6; O2SAT 92
--- NOTE | 2025-03-01 10:37 | P.DS_ITS ---
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 Additional medical history includes COPD, AAA, PVD, hypertension, hyperlipidemia, PAD s/p femorofemoral bypass and iliac stent. Hospital Course Hospital Course He was brought for coronary angiogram due to abnormal stress test and symptoms of angina which revealed patent left main, prior stents of the LAD totally occluded from the mid to distal vessel treated with EFFIE x 2. Due to slow flow in the diagonal artery with chest discomfort he was kept on nitroglycerin i nfusion. 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 Left circumflex mild to moderate luminal irregularity. He will be kept on aspirin and Plavix, we will switch him from rosuvastatin to atorvastatin 40 mg daily. He has done well overnight. No complications with right radial/right femoral cath sites. He has been up ambulating without difficulty or bleeding from the right groin. No chest pain overnight or this morning. Blood pressure has been well-controlled. He can discharge home today. Follow-up in the cardiology clinic in 7 to 10 days. Importance of medication adherence was stressed. Physical Exam Const: COMMON NORMALS: no acute distress and patient oriented x3 GENERAL APPEARANCE: cooperative ORIENTATION/CONSCIOUSNESS: Yes awake, Yes oriented to person, Yes oriented to place and Yes oriented to time Chest: COMMONS NORMALS: normal inspection of the chest and normal palpation of entire chest wall CHEST: Yes Symmetrical chest wall rise Resp: COMMON NORMALS: normal respiratory effort, No retractions, No use of accessory muscles and clear to auscultation bilaterally AUSCULTATION: clear to auscultation bilaterally Cardio: COMMON NORMALS: regular rate, regular rhythm, S1 normal heart sound present, S2 normal heart sound present, No gallops present (Cardio), No clicks present (Cardio), No murmurs present (Cardio) and No rub (Cardio) RATE: regular rate RHYTHM: regular rhythm HEART SOUNDS: S1 normal heart sound present and S2 normal heart sound present PERIPHERAL PULSES: radial pulses present positive right 2+ and femoral pulses present positive right 2+ Neuro: COMMON NORMALS: patient oriented x3 and moves all extremities SENSORIUM/ORIENTATION: Yes oriented to person, Yes oriented to place and Yes oriented to time Skin: WOUNDS: Yes surgical site (no hematoma palpable) Details: no odor Discharge Data Studies Completed and Pending Pending at discharge Category Date Time 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 Routine Exams 02/28/25 07:30 Taken Laboratory Results WBC 6.02 10^3/uL (3.29-11.43) 03/01/25 01:44 RBC 4.35 10^6/uL (3.85-5.65) 03/01/25 01:44 Hgb 13.10 g/dL (11.27-16.99) 03/01/25 01:44 Hct 40.7 % (37-53) 03/01/25 01:44 MCV 93.6 fl (82-101) 03/01/25 01:44 MCH 30.1 pg (27-33) 03/01/25 01:44 MCHC 32.2 g/dL (30-55) 03/01/25 01:44 RDW 12.9 % (12.1-15.1) 03/01/25 01:44 Plt Count 169 10^3/cmm (157-399) 03/01/25 01:44 MPV 9.3 fL (7.4-10.4) 03/01/25 01:44 Neut % (Auto) 68.0 % 03/01/25 01:44 Lymph % (Auto) 15.0 % 03/01/25 01:44 Tama % (Auto) 9.5 % 03/01/25 01:44 Eos % (Auto) 5.8 % 03/01/25 01:44 Baso % (Auto) 0.7 % 03/01/25 01:44 Neut # (Auto) 4.10 10^3/uL (1.8-7.7) 03/01/25 01:44 Lymph # (Auto) 0.9 10^3/uL (0.8-4.8) 03/01/25 01:44 Tama # (Auto) 0.6 10^3/uL (0.2-0.9) 03/01/25 01:44 Eos # (Auto) 0.4 10^3/uL (0.0-0.8) 03/01/25 01:44 Baso # (Auto) 0.0 10^3/uL (0.0-0.1) 03/01/25 01:44 Nucleated RBC % (auto) 0 % 03/01/25 01:44 Nucleated RBCs # 0.0 /100WBC 03/01/25 01:44 Sodium 134 mmol/L (136-145) L 03/01/25 01:44 Potassium 4.1 mmol/L (3.5-5.1) 03/01/25 01:44 Chloride 101 mmol/L (98-107) 03/01/25 01:44 Carbon Dioxide 21 mmol/L (22-29) L 03/01/25 01:44 Anion Gap 16.1 (5-19) 03/01/25 01:44 BUN 12 mg/dL (8-23) 03/01/25 01:44 Creatinine 1.1 mg/dL (0.7-1.2) 03/01/25 01:44 GFR Calculation Not Reportable 03/01/25 01:44 Glucose 83 mg/dL (65-115) 03/01/25 01:44 Calculated Osmolality 277 mOsm/kg (285-295) L 03/01/25 01:44 Calcium 8.9 mg/dL (8.5-10.5) 03/01/25 01:44 Vitals Last Vital Signs Temp 97.9 F 03/01/25 08:56 Pulse 61 03/01/25 08:56 Resp 16 03/01/25 08:56 BP 141/71 03/01/25 08:56 Pulse Ox 92 03/01/25 08:56 O2 Del Method Room Air 03/01/25 08:56 Discharge Plan Discharge Patient Disposition: Home Prescriptions: Continued nitroglycerin 0.4 mg tablet, sublingual 0.4 mg sublingual Q5M PRN (Reason: chest pain) Qty: 20 0RF Rx Instructions: do not exceed 3 doses per episode rosuvastatin 5 mg tablet 5 mg PO DAILY Qty: 90 5RF clopidogrel 75 mg tablet 75 mg PO DAILY Qty: 90 3RF fluticasone propion-salmeterol 250-50 mcg/dose Blister With Device 1 inh INHALATION BID sildenafil 100 mg Tablet 100 mg PO DAILY PRN (Reason: activity) Rx Instructions: administer 30 minutes to 4 hours before activity gabapentin 300 mg Capsule 300 mg PO BID montelukast 10 mg Tablet 10 mg PO QPM albuterol sulfate 90 mcg/actuation Hfa Aerosol Inhaler 2 puff INHALATION QID PRN (Reason: Shortness Of Breath) fluoxetine 20 mg Capsule 60 mg PO QAM fluticasone propionate [Flonase] 50 mcg/actuation [place],Suspension 1 spray INTRANASAL DAILY Rx Instructions: administer into each nostril prazosin 2 mg Capsule 2 mg PO BEDTIME guaifenesin 400 mg Tablet 400 mg PO TID PRN (Reason: mucus) aspirin [Aspir-81] 81 mg Tablet,Delayed Release (Dr/Ec) 81 mg PO DAILY Discharge Order = DC NOW: Discharge Order (Routine); Ordered 03/01/25 Ordered By: Rosanna Lambert Referrals: Palmira Snider NP [Nurse Practitioner, Cardiology] - 03/12/25 2:30 pm Miryam Hutson FNP [Primary Care Provider, Nurse Practitioner] - 03/08/25 1:30 pm Diet: Cardiac Activity: Increase activity as tolerated Patient Instructions: Cardiac Rehabilitation (DC), Coronary Intravascular Stent Placement (DC), Chest Pain Stoplight, Post Angiogram Home Care Instructions Activity Restrictions/Additional Instructions: No lifting over 5 pounds for the next 4 days. Stand Alone Forms: At Home Dressing Change, Work/School Release Print Language: German Discharge Attestations Time Spent in Discharge Care*: less than 30 min Status at Discharge: Cognitive status at discharge: cognitively intact , Behavioral status at discharge: cooperative , Quality Metrics Clinical Quality Measures [ No reported AMI, CVA or VTE this stay] Coding Level of Care Code Acute Code for Chg Lizandro
--- NOTE | 2025-03-01 12:55 | PC.SOCIAL ---
OK DC paperwork faxed to [facility] @ this time.
== END 2025-03-01 10:58 | disposition home or self-care (01) ==
LOC: CCL 07:05 → CSU 11:10
PROVIDERS: Nurse Practitioner Family; PCP Nurse Practitioner; Visit Provider Internal Medicine
DX: I25.119 Atherosclerotic heart disease of native coronary artery with unspecified angina pectoris (principal); I25.82 Chronic total occlusion of coronary artery; Z95.5 Presence of coronary angioplasty implant and graft; I10 Essential (primary) hypertension; J44.9 Chronic obstructive pulmonary disease, unspecified; E78.5 Hyperlipidemia, unspecified; Z87.891 Personal history of nicotine dependence; Z79.82 Long term (current) use of aspirin; Z79.02 Long term (current) use of antithrombotics/antiplatelets; F43.10 Post-traumatic stress disorder, unspecified; F32.A Depression, unspecified; I71.40 Abdominal aortic aneurysm, without rupture, unspecified; Z95.828 Presence of other vascular implants and grafts
CPT/HCPCS: 36415; 80048; 85025; 85347; 93454; 99152; 99153; C1725; C1769; C1874; C1887; C1894; C9600; J1644; J2250; J3010; J3490; J7030; J9999; Q0163; Q9967

== ENCOUNTER → 2025-03-12 14:10 | Outpatient (BNVA) | payer OTHER, SELFPAY | PROVIDERS: PCP Nurse Practitioner; Visit Provider Nurse Practitioner Family | DX: I25.10 Atherosclerotic heart disease of native coronary artery without angina pectoris (principal); I73.9 Peripheral vascular disease, unspecified; I10 Essential (primary) hypertension; B02.9 Zoster without complications; I71.40 Abdominal aortic aneurysm, without rupture, unspecified; Z98.890 Other specified postprocedural states; Z79.02 Long term (current) use of antithrombotics/antiplatelets; Z79.82 Long term (current) use of aspirin; Z95.5 Presence of coronary angioplasty implant and graft; Z87.891 Personal history of nicotine dependence | CPT/HCPCS: 36415; 80048; 85025; 99214 ==

== ENCOUNTER 2025-03-21 08:09 | Outpatient (CLI) | payer OTHER, SELFPAY ==
--- NOTE | 2025-03-21 08:30 | USCV_ITS ---
Godwin Solorio Age: 79 Gender: M : 1945 Exam Date: 03/21/2025 08:42 Ordering Phys: Palmira Snider NP Technologist: Exam Location: [facility] [place] Indication: AAA HISTORY: Diameter (cm) AP x Transverse x Length Velocity (cm/s) Waveform Prox Aorta: 2.30 x 2.30 x 62.90 Mid Aorta: 1.90 x 1.80 x 51.80 Distal Aorta: 1.80 x 1.70 x 54.30 Right Iliac Prox: 0.90 x 0.99 x 90.00 Left Iliac Prox: 0.85 x 1.20 x 232.40 Stent Prox Landing x x Aneurysmal Sac Max x x Lt Lat Sac Dim Rt Lat Sac Dim Stent Dist Landing x x Right Iliac Stent x x Left Iliac Stent x x Right Renal Art Left Renal Art FINDINGS: Comparison:. 09/29/22 No evidence of abdominal aortic aneurysm. Ectatic abdominal aorta with evidence of atherosclerotic plaque noted. There is evidence of atherosclerotic plaque no significan stenosis in the right common iliac artery. There is evidence of atherosclerotic plaque no significan stenosis in the left common iliac artery. CONCLUSIONS No evidence of abdominal aortic or bilateral iliac aneurysm. Dr. Marii Barillas DO (Electronically Signed) Final Date: 21 March 2025 15:29 S
--- NOTE | 2025-03-21 09:15 | USR_ITS ---
PROCEDURE INFORMATION: Exam: US Duplex Bilateral Lower Extremity Arteries Exam date and time: 03/21/2025 9:04 AM Age: 79 years old Clinical indication: Condition or disease; Other: Fem to fem bypass; Prior surgery; Surgery date: 6+ months; Additional info: HX of fem fem bypass TECHNIQUE: Imaging protocol: Real-time ultrasound scan of the arteries of the bilateral lower extremities with 2-D keenan scale, color Doppler flow and spectral waveform analysis. Images documented and saved. COMPARISON: CT angio abd aorta runof [id number] 04/12/2019 1:39 PM FINDINGS: Right common femoral artery: No occlusion or significant stenosis. Normal waveform. Right superficial femoral artery: No occlusion or significant stenosis. Normal waveform. Right popliteal artery: No occlusion or significant stenosis. Normal waveform. Right calf/foot arteries: No occlusion or significant stenosis in the visualized arteries. Monophasic waveform in the dorsalis pedis. Right ERNIE 0.8. Left common femoral artery: No occlusion or significant stenosis. Normal waveform. Left superficial femoral artery: No occlusion or significant stenosis. Normal waveform. Left popliteal artery: No occlusion or significant stenosis. Normal waveform. Left calf/foot arteries: No occlusion or significant stenosis in the visualized arteries. Monophasic waveforms. Left ERNIE 0.8. US/[place] [id number] IMPRESSION: No stenosis or occlusion.
== END 2025-03-21 08:10 | disposition home or self-care (01) ==
LOC: RAD 08:12
PROVIDERS: PCP Nurse Practitioner; Visit Provider Nurse Practitioner Family
DX: Z95.828 Presence of other vascular implants and grafts (principal); I73.9 Peripheral vascular disease, unspecified; I77.811 Abdominal aortic ectasia; I70.90 Unspecified atherosclerosis
CPT/HCPCS: 93925; 93978

== ENCOUNTER → 2025-05-09 12:26 | Outpatient (BNVA) | payer OTHER, SELFPAY | PROVIDERS: PCP Nurse Practitioner; Visit Provider Internal Medicine | DX: I25.119 Atherosclerotic heart disease of native coronary artery with unspecified angina pectoris (principal); I10 Essential (primary) hypertension; Z95.828 Presence of other vascular implants and grafts; I73.9 Peripheral vascular disease, unspecified; J44.9 Chronic obstructive pulmonary disease, unspecified; Z95.5 Presence of coronary angioplasty implant and graft; Z87.891 Personal history of nicotine dependence | CPT/HCPCS: 99214 ==

== ENCOUNTER 2025-06-14 06:48 | Outpatient (CLI) | payer OTHER, SELFPAY ==
--- NOTE | 2025-06-14 07:11 | CT_ITS ---
WS: [id number] LDCT LUNG CANCER SCREENING HISTORY: SCREENING/HX OF NICOTINE DEPENDENCE TECHNIQUE: Axial imaging performed from the apices to 1 cm below the costophrenic angles. Coronal and sagittal reformats are submitted with axial MIP series. All CT scans at [facility] use at least one of these dose optimization techniques: automated exposure control; mA and/or kV adjustment per patient size (includes targeted exams where dose is matched to clinical indication); or iterative reconstruction. DLP: 62.99 mGy.cm DIvol: Mean CTDIvol: 1.20 (mGy) COMPARISON: 01/18/2024, 12/25/2022 Diagnostic quality: Satisfactory Lungs: Moderate pulmonary hyperexpansion. Long-term stability linear atelectasis at the lung bases. Reidentified is a 5 mm nodule in the superior segment RIGHT lower lobe which has been previously described. 2 mm micronodule RIGHT middle lobe. There are a few other very small micronodules identified. There is no mass. Mild diffuse increased interstitial markings throughout both lungs. No endobronchial lesions. Heart: Normal size heart with no pericardial effusion.. Extensive coronary artery calcifications. Other findings: Mild atherosclerosis aorta. Normal size pulmonary artery. No mediastinal or hilar adenopathy. Small hiatal hernia. Splenic granulomata. Splenic artery calcifications. No adrenal mass. CT/CT lung screening [id number] IMPRESSION: LUNG-RADS: 2S-Benign Appearance or Behavior with Significant Findings FOLLOW UP: 12 Month: Continue annual screening with LDCT OTHER FINDINGS (S MODIFIER): Very dense heavy calcification of the [place] coron [place]lye arteries.
== END 2025-06-14 06:49 | disposition home or self-care (01) ==
LOC: RAD 06:49
PROVIDERS: PCP Nurse Practitioner; Visit Provider Nurse Practitioner
DX: Z12.2 Encounter for screening for malignant neoplasm of respiratory organs (principal); Z87.891 Personal history of nicotine dependence; J98.11 Atelectasis; J98.4 Other disorders of lung; R91.8 Other nonspecific abnormal finding of lung field; I25.84 Coronary atherosclerosis due to calcified coronary lesion; I70.0 Atherosclerosis of aorta; K44.9 Diaphragmatic hernia without obstruction or gangrene; D73.9 Disease of spleen, unspecified; I77.89 Other specified disorders of arteries and arterioles
CPT/HCPCS: 71271

== ENCOUNTER → 2025-06-25 08:08 | Outpatient (BNVA) | payer OTHER, SELFPAY | PROVIDERS: PCP Nurse Practitioner; Referring Provider Nurse Practitioner; Visit Provider Internal Medicine | DX: J44.89 Other specified chronic obstructive pulmonary disease (principal); R91.8 Other nonspecific abnormal finding of lung field; Z87.891 Personal history of nicotine dependence; J44.9 Chronic obstructive pulmonary disease, unspecified; T78.40XA Allergy, unspecified, initial encounter; X58.XXXA Exposure to other specified factors, initial encounter | CPT/HCPCS: 82103; 85025; 86003; 99204; Q3014 ==

== ENCOUNTER → 2025-07-16 07:31 | Outpatient (BNVA) | payer OTHER, SELFPAY | PROVIDERS: PCP Nurse Practitioner; Visit Provider Dermatology | DX: L21.8 Other seborrheic dermatitis (principal); L98.8 Other specified disorders of the skin and subcutaneous tissue; D48.5 Neoplasm of uncertain behavior of skin; L30.8 Other specified dermatitis | CPT/HCPCS: 11102; 17000; 69100; 99214 ==